=== PATIENT | female | born 1990 | race Caucasian/White ===

== ENCOUNTER 2019-12-26 18:17 | Emergency (ER) | payer SELFPAY ==
[2019-12-26 19:44] VITALS: BP 145/68; PULSE 76; RESP 16; TEMP 37.1; O2SAT 100; BMI 24.4
--- NOTE | 2019-12-26 20:52 | ED.ALLEREA ---
HPI - Allergic Reaction General Chief complaint: Allergic Reaction Stated complaint: ALLERGIC REACTION Time Seen by Provider: 12/26/19 20:52 Source: patient History of Present Illness HPI narrative: 29-year-old female states was exposed to some transmission oil that may have had some latex on it and had a rash on bilateral hands. Since then it has improved and came into emergency department for evaluation. Patient states no shortness of breath no chest pain no rash now came in for evaluation MD complaint: allergic reaction Known history of allergy to: latex Symptoms: rash Related Data Allergies Allergy/AdvReac Type Severity Reaction Status Date / Time Sulfa (Sulfonamide Allergy Unknown ANAPHYLAXIS Unverified 12/06/19 16:00 Antibiotics) Latex, Natural Rubber Allergy Swelling Verified 12/26/19 19:47 Review of Systems Review of Systems: Constitutional : No Weight loss, No Fever, No Chills, No Night Sweats, No Fatigue, No Malaise ENT/Mouth : No Hearing loss, No Ear Pain, No Nasal Congestion, No Sinus Pain, No Hoarseness, No sore throat, No Rhinorrhea, No Swallowing Difficulty Eyes: No Eye Pain, No Swelling, No Redness, No Foreign Body, No Discharge, No Vision Changes Cardiovascular : No Chest Pain, No SOB, No Dyspnea on Exertion, No Orthopnea, No Edema, No Palpitations Respiratory : No Cough, No Sputum, No Wheezing, No Smoke Exposure, No Dyspnea Gastrointestinal : No Nausea, No Vomiting, No Diarrhea, No Constipation, No abdominal Pain, No Hematochezia, No Melena Genitourinary : no irregular bleeding, No Dysuria, No Urinary Frequency, No Hematuria, No Urinary Incontinence, No Urgency, No Flank Pain, No Urinary Flow Changes, No Hesitancy Musculoskeletal : No joint pain, No Myalgias, No Joint Swelling Skin : No Skin Lesions, No rash Neuro : No Weakness, No Numbness, No Paresthesias, No Loss of Consciousness, No Dizziness, No Headache Psych : No Anxiety/Panic, No Depression, No SI/HI/AH/VH, No Social Issues, Heme/Lymph: No Bruising, No Bleeding,No Lymphadenopathy Endocrine : No Polyuria, No Polydipsia, No Temperature Intolerance PMFSH Past Medical History Attestation statement: The following information was validated with the patient. Medical History delivery delivered Cholecystitis Family History Family History (Updated 12/26/19 @ 20:54 by Anton Walker DO) Other Patient denies medical problems Social History Social History Alcohol intake: never Smoking Status: Current every day smoker Smoked in Last 30 Days: Yes Use of substances other than those prescribed or required for medical reasons: No Advance Directives: No Advance Directives Information Provided: Yes Physical Exam Vital Signs and I&O and Narrative: Vital Signs and I&O: Vital Signs Temp 98.7 F 12/26/19 19:44 Pulse 76 12/26/19 19:44 Resp 16 12/26/19 19:44 BP 145/68 H 12/26/19 19:44 Pulse Ox 100 12/26/19 19:44 Intake & Output 12/26/19 12/26/19 12/27/19 06:59 18:59 06:59 Weight 62.596 kg Body Mass Index 24.4 reviewed Appearance: Alert. Oriented X3. No acute distress. Eyes: Pupils equal, round and reactive to light. ENT: Pharynx normal. Neck: Normal inspection. Neck supple. CVS: Normal heart rate and rhythm. Pulses normal. Respiratory: No respiratory distress. Breath sounds normal. Abdomen: Soft and nontender. Skin: Skin warm and dry. Normal skin color. Normal skin turgor. Extremities: No lower extremity edema. No lower extremity edema. no rash neurovascularly intact Neuro: Oriented X 3. No motor deficit. No sensory deficit. Discharge Plan Discharge Clinical Impression: Allergic reaction Patient Disposition: Home, Self-Care Instructions: Allergies (ED) Additional Instructions: Thank you for visiting the emergency department today. If your symptoms worsen or do not resolve completely please return to the emergency department immediately or call 911. if he have any questions please call your primary care physician Referrals: Sarai Chun [Emergency Nurse] - 2 days
[2019-12-26] MEDS: dexAMETHasone 6 MG TABLET PO (21:10)
== END 2019-12-26 21:13 | disposition home or self-care (01) ==
PROVIDERS: Emergency Provider Emergency Medicine
DX: Z04.2 Encounter for examination and observation following work accident (principal); T65.811A Toxic effect of latex, accidental (unintentional), initial encounter; R21 Rash and other nonspecific skin eruption; Y92.9 Unspecified place or not applicable; F17.200 Nicotine dependence, unspecified, uncomplicated
CPT/HCPCS: 99283; 99284; J8540

== ENCOUNTER 2021-03-10 16:28 | Emergency (ER) | payer OTHER, SELFPAY ==
[2021-03-10 16:55] VITALS: BP 148/107; PULSE 87; RESP 16; TEMP 36.9; O2SAT 99; BMI 28.8
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
== END 2021-03-10 17:52 | disposition home or self-care (01) ==
PROVIDERS: Emergency Provider Emergency Medicine; PCP Physician Assistant
DX: K02.9 Dental caries, unspecified (principal); K05.10 Chronic gingivitis, plaque induced
CPT/HCPCS: 99283

== ENCOUNTER 2021-05-19 01:09 | Emergency (ER) | payer OTHER, SELFPAY ==
[2021-05-19 01:11] VITALS: BP 144/90; PULSE 75; RESP 18; TEMP 36.4; O2SAT 96; BMI 24.7
--- NOTE | 2021-05-19 03:42 | ED.DENTAL ---
HPI - Dental/Oral General Chief complaint: Dental/Oral Stated complaint: Dental pain Time Seen by Provider: 05/19/21 03:37 Source: patient Mode of arrival: ambulatory Limitations: no limitations History of Present Illness HPI Narrative: Patient comes to emergency room complaining of severe tooth pain. Patient states that she was supposed to be seen by the dentist couple of months ago, however she was diagnosed with COVID and her procedure was delayed. Patient complaining of worsening pain in the maxillary side on the left side. Patient has an appointment in 3 days with her dentist. Patient denies fever chills Related Data Previous Rx's Medication Instructions Recorded acetaminophen 500 mg tablet 1,000 mg PO QID PRN #14 tab 03/10/21 (Tylenol Extra Strength) amoxicillin 875 mg-potassium 1 tab PO BID 10 Days #20 tab 03/10/21 clavulanate 125 mg tablet (Augmentin) chlorhexidine gluconate 0.12 % 15 ml MUCOUS MEMBRANE BID #473 ml 03/10/21 mouthwash ibuprofen 800 mg tablet 800 mg PO Q8H PRN #14 tab 03/10/21 oxycodone 5 mg tablet 5 mg PO Q6H PRN #14 tab 03/10/21 ketorolac 10 mg tablet 10 mg PO TID PRN 5 Days tab 05/19/21 penicillin V potassium 500 mg 500 mg PO TID 10 Days #30 tab 05/19/21 tablet Allergies Allergy/AdvReac Type Severity Reaction Status Date / Time Sulfa (Sulfonamide Allergy Unknown ANAPHYLAXIS Verified 05/19/21 01:10 Antibiotics) Latex, Natural Rubber Allergy Swelling Verified 05/19/21 01:10 Review of Systems Review of Systems: Constitutional : No Weight loss, No Fever, No Chills, No Night Sweats, No Fatigue, No Malaise ENT/Mouth : No Hearing loss, No Ear Pain, No Nasal Congestion, No Sinus Pain, No Hoarseness, No sore throat, No Rhinorrhea, No Swallowing Difficulty, complaining of dental pain Eyes: No Eye Pain, No Swelling, No Redness, No Foreign Body, No Discharge, No Vision Changes Cardiovascular : No Chest Pain, No SOB, No Dyspnea on Exertion, No Orthopnea, No Edema, No Palpitations Respiratory : No Cough, No Sputum, No Wheezing, No Smoke Exposure, No Dyspnea Gastrointestinal : No Nausea, No Vomiting, No Diarrhea, No Constipation, No abdominal Pain, No Hematochezia, No Melena Genitourinary : no irregular bleeding, No Dysuria, No Urinary Frequency, No Hematuria, No Urinary Incontinence, No Urgency, No Flank Pain, No Urinary Flow Changes, No Hesitancy Musculoskeletal : No joint pain, No Myalgias, No Joint Swelling Skin : No Skin Lesions, No rash Neuro : No Weakness, No Numbness, No Paresthesias, No Loss of Consciousness, No Dizziness, No Headache Psych : No Anxiety/Panic, No Depression, No SI/HI/AH/VH, No Social Issues, Heme/Lymph: No Bruising, No Bleeding,No Lymphadenopathy Endocrine : No Polyuria, No Polydipsia, No Temperature Intolerance PMF Past Medical History Medical History delivery delivered Cholecystitis Family History Family History Other Patient denies medical problems Social History Social History Alcohol intake: never Advance Directives: No Patient : No Physical Exam Vital Signs: Vital Signs: Last Vital Signs Temp 97.5 F 05/19/21 01:11 Pulse 75 05/19/21 01:11 Resp 18 05/19/21 01:11 BP 144/90 H 05/19/21 01:11 Pulse Ox 96 05/19/21 01:11 BMI result Body Mass Index 24.7 Const: Other: Appearance: Alert. Oriented X3. No acute distress. Eyes: Pupils equal, round and reactive to light. ENT: Pharynx normal. Overall poor dentition. multiple decayed teeth, pain to palpation over the left maxillary side. Dental abscess was not visualized Neck: Normal inspection. Neck supple. No lymph nodes noted. No crepitus CVS: Normal heart rate and rhythm. Pulses normal. Normal S1 and S2 Respiratory: No respiratory distress. Breath sounds normal. No Wheezing. No rales Abdomen: Soft and nontender. No rigidity. No distention. good BS x4 Skin: Skin warm and dry. Normal skin color. Normal skin turgor. Extremities: No lower extremity edema. No lower extremity edema. No Lacerations. No Rash Neuro: Oriented X 3. No motor deficit. No sensory deficit. Moving all extermities. No slurred speech. Course Course Course Narrative: Patient was given 1 dose of IM Toradol and p.o. penicillin. Patient instructed to follow-up with her dentist. Discharge Plan Discharge Clinical Impression: Toothache Patient Disposition: Home, Self-Care Instructions: Toothache (ED) Additional Instructions: Please follow-up with your primary care physician tomorrow. If you have any worsening or new symptoms, please return to the emergency room or call 911 Prescriptions: New penicillin V potassium 500 mg tablet 500 mg PO TID 10 Days Qty: 30 0RF ketorolac 10 mg tablet 10 mg PO TID PRN (Reason: pain) 5 Days 0RF Rx Instructions: Do not use ibuprofen, naproxen, Motrin, only use Tylenol if needed No Action amoxicillin-pot clavulanate [Augmentin] 875-125 mg tablet 1 tab PO BID 10 Days Qty: 20 0RF ibuprofen 800 mg tablet 800 mg PO Q8H PRN (Reason: pain) Qty: 14 0RF acetaminophen [Tylenol Extra Strength] 500 mg tablet 1,000 mg PO QID PRN (Reason: fever or pain) Qty: 14 0RF chlorhexidine gluconate 0.12 % mouthwash 15 ml mucous membrane BID Qty: 473 0RF oxycodone 5 mg tablet 5 mg PO Q6H PRN (Reason: pain) Qty: 14 0RF
[2021-05-19] MEDS: Penicillin V Potassium 250 MG TABLET 500 MG PO (03:49)
[2021-05-19] MEDS: Ketorolac Tromethamine 60 MG/2 ML VIAL IM (03:50)
[2021-05-19 03:54] VITALS: BP 128/77; PULSE 78; RESP 16; O2SAT 98
== END 2021-05-19 03:56 | disposition home or self-care (01) ==
PROVIDERS: Emergency Provider Emergency Medicine
DX: K08.89 Other specified disorders of teeth and supporting structures (principal); Z79.899 Other long term (current) drug therapy
CPT/HCPCS: 96372; 99284; J1885

== ENCOUNTER → 2021-08-14 10:33 | Outpatient (BNVA) | payer SELFPAY | DX: Z01.84 Encounter for antibody response examination (principal) ==

== ENCOUNTER 2023-09-24 07:39 | Emergency (ER) | payer OTHER, SELFPAY ==
--- NOTE | ~2023-09-24 | CT_ITS ---
EXAMINATION: CT ABDOMEN AND PELVIS WITHOUT CONTRAST CLINICAL INFORMATION: Right flank pain, fever COMPARISON: CT abdomen and pelvis 05/21/2019 TECHNIQUE: Multidetector volumetric imaging was performed from the superior aspect of the liver through the pubic symphysis. Sagittal and coronal reformatted images were obtained on the technologist's workstation. This CT examination was performed using dose optimization techniques as appropriate, variously including the following: *Automated exposure control *Adjustment of mA and/or kV according to patient size (this includes techniques or standardized protocols for targeted exams where dose is matched to indication/reason for exam; i.e. extremities or head) *Use of iterative reconstruction technique DLP: 461 mGy-cm FINDINGS: LUNG BASES: A 6 mm solid right lower lobe pulmonary nodules unchanged from 2019, and therefore likely benign. ABDOMINAL AND PELVIC WALL: Unremarkable. LIVER AND BILIARY TREE: Unremarkable. GALLBLADDER: Status post cholecystectomy. PANCREAS: Unremarkable. SPLEEN: Unremarkable. ADRENAL GLANDS: Unremarkable. KIDNEYS AND URETERS: No hydronephrosis or nephrolithiasis. Lack of intravenous contrast limits assessment for pyelonephritis. No appreciable perinephric fat stranding. GASTROINTESTINAL TRACT: Colonic diverticulosis without evidence of diverticulitis. Normal appendix. VASCULAR: Unremarkable. LYMPH NODES/PERITONEUM: No lymphadenopathy. FREE FLUID: None. BLADDER: Unremarkable. PELVIC VISCERA: Unremarkable. OSSEOUS STRUCTURES: Unremarkable. CT/CT abdomen pelvis wo IV con IMPRESSION: No hydronephrosis or nephrolithiasis. Lack of intravenous contrast limits assessment for pyelonephritis, if any clinical concern a postcontrast CT abdomen and pelvis could be obtained. No appreciable perinephric fat stranding.
[2023-09-24 07:41] VITALS: BP 145/97; PULSE 82; RESP 16; TEMP 36.6; O2SAT 95; BMI 28.5
--- NOTE | 2023-09-24 07:58 | ED_ITS ---
HPI - General Adult General Chief complaint: Abdominal Pain Stated complaint: vomiting fever headache Time Seen by Provider: 09/24/23 07:47 History of Present Illness ED Provider: Michelle COLBY HPI narrative: 33 yo female presenting with right sided flank pain, nausea, vomiting, and diarrhea x 1 week. She also reports amenorrhea since July of this year. She initially had RLQ pain and was seen at [facility] where they ruled out appendicitis and and she was prescribed Augmentin. Since starting antibiotics, she has had more diarrhea and right sided flank pain. She reports intermittent fevers, chills, and dizziness, no chest pain, sob. Related Data Previous Rx's ?Medication ?Instructions ?Recorded acetaminophen 500 mg tablet 1,000 mg (2 x 500 mg) PO QID PRN 03/10/21 (Tylenol Extra Strength) fever or pain #14 tabs amoxicillin 875 mg-potassium 1 tab PO BID 10 days #20 tabs 03/10/21 clavulanate 125 mg tablet (Augmentin) chlorhexidine gluconate 0.12 % 15 ml mucous membrane BID #473 mL 03/10/21 mouthwash ibuprofen 800 mg tablet 800 mg PO Q8H PRN pain #14 tabs 03/10/21 oxycodone 5 mg tablet 5 mg PO Q6H PRN pain #14 tabs 03/10/21 ketorolac 10 mg tablet 10 mg PO TID PRN pain 5 days 05/19/21 penicillin V potassium 500 mg 500 mg PO TID 10 days #30 tabs 05/19/21 tablet acetaminophen 325 mg capsule 325 mg PO Q4H PRN pain #30 caps 09/24/23 (Tylenol) ketorolac 10 mg tablet 10 mg PO TID PRN pain 5 days #15 09/24/23 tabs lidocaine 5 % topical patch 1 patch topical DAILY PRN pain #15 09/24/23 ea Allergies Allergy/AdvReac Type Severity Reaction Status Date / Time Sulfa (Sulfonamide Allergy Unknown ANAPHYLAXIS Verified 09/24/23 07:43 Antibiotics) Latex, Natural Rubber Allergy Swelling Verified 09/24/23 07:43 PMFSH Past Medical History Medical History delivery delivered Cholecystitis Family History Family History Other Patient denies medical problems Social History Social History (System 01/04/23 @ 11:48 by Adriana Mota) Alcohol intake: never Patient Tobacco Use Status: Never used Tobacco Smoked in Last 30 Days: No Use of substances other than those prescribed or required for medical reasons: No Advance Directives: No Advance Directives Information Provided: No Do you have a plan to hurt others: No Plan Patient : No Physical Exam ED Vital Signs: Vital Signs - 24 hr 09/24/23 07:41 09/24/23 10:16 09/24/23 11:43 Temperature 97.9 F 97.9 F 97.9 F Pulse Rate 82 75 75 Respiratory Rate 16 16 16 Blood Pressure 145/97 H 120/79 120/79 Pulse Oximetry 95 98 98 Oxygen Delivery Method Room Air Room Air Room Air BMI result Body Mass Index 28.5 vss Appearance: Alert.? Oriented X3.? No acute distress.? Head: Normocephalic, atraumatic, no step-offs or deformities Eyes: Pupils equal, round and reactive to light.? ENT: Pharynx normal.??External ears normal, TMs normal bilaterally and EAC's normal. No pain with manipulation of external ears bilaterally. No mastoid tenderness. Neck: Normal inspection.? Neck supple.? CVS: Normal heart rate and rhythm.? Pulses normal.? Respiratory: No respiratory distress.? Breath sounds normal.? Abdomen: Soft and nontender.? Skin: Skin warm and dry.? Normal skin color.? Normal skin turgor. Back: No midline tenderness, no C-spine tenderness, full range of motion, + CVA tenderness to right side Neuro: Oriented X 3.? No motor deficit.? No sensory deficit. CN 2-12 intact Course Reevaluation(s) Reevaluation #1: CBC unremarkable. Chemistry no acute findings requiring intervention. Negative beta hCG. Normal lipase. UA without infection. Flu, COVID, RSV negative. CT abdomen pelvis with no acute findings no hydronephrosis or nephrolithiasis lack of IV contrast limits assessment for pyelonephritis, however, patient afebrile, no tachycardia no white count, urine without infection. Patient's pain improved with Toradol, Lidoderm. Plan at this time is discharged home with PCP follow-up. Educated patient on diagnosis and treatment plan, answered all question, patient verbalizes understanding. At this time patient will be discharged home, advised to return with new or worsening symptoms. Educated on worrisome signs and symptoms and when to return. At this time I feel comfortable discharge home. Time: 11:14 Reevaluation #2: To note, I do not suspect ovarian torsion, ectopic . Patient also mentions she had a full pelvic transvaginal and external ultrasound done at [facility] as well as a CT scan with contrast she thinks. She tells me all those scans and imaging were normal. Time: 11:14 Medications Administered Discontinued Medications Generic Name Dose Route Start Last Admin Trade Name Freq PRN Reason Stop Dose Admin Acetaminophen 975 mg 09/24/23 10:10 09/24/23 10:18 Acetaminophen 325 Mg Tablet PO 09/24/23 10:11 975 mg ONCE ONE Administration Sodium Chloride 1,000 mls @ 999 mls/hr 09/24/23 09:45 09/24/23 11:42 Ns IV 09/24/23 10:45 Infused .Q1H1M MISTY Infusion Ketorolac Tromethamine 30 mg 09/24/23 09:31 09/24/23 10:18 Ketorolac Tromethamine 15 Mg/Ml Vial IVPUSH 09/24/23 09:32 30 mg ONCE ONE Administration Lidocaine 1 patch 09/24/23 10:10 09/24/23 10:18 Lidocaine 4 % Patch Adh..Patch TRANSDERMA 09/24/23 10:11 1 patch ONCE ONE Administration Protocol Ondansetron HCl 4 mg 09/24/23 10:22 09/24/23 10:23 Ondansetron Hcl 4 Mg/2 Ml Vial IVPUSH 09/24/23 10:23 4 mg ONCE ONE Administration Medical Decision Making Medical Decision Making MDM Narrative: 33 yo female presenting with right sided flank pain, nausea, vomiting, and diarrhea x 1 week. PE + CVA tenderness to right side. Hx and PE concerning for kidney stone versus gastroenteritis. Unlikely pylo, obstructing uropathy, , appendicitis, cholecystitis, cholangitis. No signs of cauda equina, epidural abscess, cord compression. Unlikely ectopic , ovarian torsion Plan - labs, imaging, urine. Differential Diagnosis Differential Diagnoses: The differential diagnosis associated with the presentation includes Hx and PE concerning for kidney stone versus gastroenteritis. Unlikely pylo, obstructing uropathy, , appendicitis, cholecystitis, cholangitis. No signs of cauda equina, epidural abscess, cord compression. Unlikely ectopic , ovarian torsion Lab Data 09/24/23 08:01 09/24/23 08:01 Labs: Lab Results 09/24/23 Range/Units 08:01 WBC 6.6 (4.8-10.8) X10*3/uL RBC 4.55 (4.20-5.50) X10*6/uL Hgb 13.5 (12.0-16.0) g/dl Hct 39.2 (37.0-47.0) % MCV 86.2 (80.0-98.0) fL MCH 29.7 (27.0-33.0) pg MCHC 34.4 (31.0-35.0) g/dl RDW 13.2 (11.0-16.0) % Plt Count 381 (160-400) X10*3/uL MPV 8.6 L (9.4-12.3) fL Immature Gran % (Auto) 0.3 (0.0-0.4) % Neut % (Auto) 62.6 (45-73) % Lymph % (Auto) 27.6 (20-40) % [place] % (Auto) 7.5 (2-11) % Eos % (Auto) 1.5 (0-4) % Baso % (Auto) 0.5 (0-2) % Lymph # (Auto) 1.8 (1.2-4.9) X10*3/uL [place] # (Auto) 0.5 (0.1-1.2) X10*3/uL Eos # (Auto) 0.1 (0.0-0.4) X10*3/uL Baso # (Auto) 0.0 (0.0-0.2) X10*3/uL Abs Immat Gran (auto) 0.02 (0.00-0.03) X10*3/uL Absolute Neuts (auto) 4.2 (2.0-8.3) x10*3/uL Absolute Nucleated RBC 0.000 (0.0-0.012) X10*3/uL Nucleated RBC % (auto) 0.0 (0.0-0.2) /100WBC Sodium 140 (135-145) mmol/L Potassium 4.2 (3.3-5.1) mmol/L Chloride 108 (96-108) mmol/L Carbon Dioxide 25 (22-29) mmol/L Anion Gap 11 L (12-20) BUN 15 (9-16) mg/dL Creatinine 0.83 (0.5-1.4) mg/dL Estim Creat Clear Calc 88.8 Estimated GFR > 60 Random Glucose 102 (60-115) mg/dL Calcium 9.5 (8.4-10.2) mg/dL Total Bilirubin 0.2 (0.0-1.0) mg/dL AST 18 (5-31) U/L ALT 32 H (0-31) U/L Alkaline Phosphatase 98 (39-117) U/L Total Protein 7.6 (6.5-8.0) g/dL Albumin 4.5 (3.5-5.0) g/dL Lipase 44 (8-78) U/L Beta HCG, Quant < 2 mIU/mL Urine Color Yellow Urine Appearance Clear Urine pH 7.0 (5.0-9.0) Ur Specific [place] 1.020 (1.005-1.025) Urine Protein Negative (Neg-Trace) mg/dL Urine Glucose (UA) Negative (Negative) mg/dL Urine Ketones Negative (Negative) mg/dL Urine Blood Negative (Negative) Urine Nitrite Negative (Negative) Ur Leukocyte Esterase Negative (Negative) Urine Test NEGATIVE (NEGATIVE) Influenza Type A (PCR) NEGATIVE (Negative) Influenza Type B (PCR) NEGATIVE (Negative) RSV RNA Qual (PCR) NEGATIVE (Negative) SARS-CoV-2 RNA (RT-PCR) NEGATIVE (Negative) Discharge Plan Discharge Clinical Impression: Acute right flank pain Patient Disposition: Home, Self-Care Instructions: Flank Pain (ED) Additional Instructions: Take your medications as prescribed. If you were prescribed antibiotics today, it is important that you take your medication to their entirety, do not skip any doses, do not finish them early. Follow-up with your primary care provider this week. Return to the emergency department with new or worsening symptoms. Such as fevers, chills, chest pain, shortness of breath, nausea, vomiting, dizziness, headache, vision changes, lethargy In case of emergency call 911 Toradol has been sent to your pharmacy, you tolerated this well in the department. Please take this as prescribed do not take this with ibuprofen, or other NSAIDs, do not mix this with alcohol. Side effects of this medication including increased risk for bleeding and possible kidney injury. Return with any new or worsening symptoms such as back pain, fevers, numbness, tingling, nausea, vomiting, abdominal pain. CT/CT abdomen pelvis wo IV con IMPRESSION: No hydronephrosis or nephrolithiasis. Lack of intravenous contrast limits assessment for pyelonephritis, if any clinical concern a postcontrast CT abdomen and pelvis could be obtained. No appreciable perinephric fat stranding. Prescriptions: New ketorolac 10 mg tablet 10 mg PO TID PRN (Reason: pain) 5 Days Qty: 15 0RF lidocaine 5 % adhesive patch,medicated 1 patch topical DAILY PRN (Reason: pain) Qty: 15 0RF Rx Instructions: leave on most painful area for up to 12 hrs acetaminophen [Tylenol] 325 mg capsule 325 mg PO Q4H PRN (Reason: pain) Qty: 30 0RF No Action amoxicillin-pot clavulanate [Augmentin] 875-125 mg tablet 1 tab PO BID 10 Days Qty: 20 0RF ibuprofen 800 mg tablet 800 mg PO Q8H PRN (Reason: pain) Qty: 14 0RF acetaminophen [Tylenol Extra Strength] 500 mg tablet 1,000 mg PO QID PRN (Reason: fever or pain) Qty: 14 0RF chlorhexidine gluconate 0.12 % mouthwash 15 ml mucous membrane BID Qty: 473 0RF oxycodone 5 mg tablet 5 mg PO Q6H PRN (Reason: pain) Qty: 14 0RF penicillin V potassium 500 mg tablet 500 mg PO TID 10 Days Qty: 30 0RF ketorolac 10 mg tablet 10 mg PO TID PRN (Reason: pain) 5 Days 0RF Rx Instructions: Do not use ibuprofen, naproxen, Motrin, only use Tylenol if needed Referrals: Rachael Salinas PA-C [Primary Care Provider] - 2 days Stand Alone Forms: Work/School Release Interventions: ED Discharge Assessment Last Done: 09/24/23 11:43 Discharge Date/Time: 09/24/23 11:45 Print Language: Georgian
[2023-09-24 08:06] LABS: MANUAL DIFF FLAG NO
[2023-09-24 08:08] LABS: Basophils Percent Auto 0.5 % (0-2); Eosinophils Absolute Auto 0.1 X10*3/uL (0.0-0.4); Eosinophils Percent Auto 1.5 % (0-4); Hematocrit 39.2 % (37.0-47.0); Hemoglobin 13.5 g/dl (12.0-16.0); Imm Gran Abs Auto 0.02 X10*3/uL (0.00-0.03); Imm Gran Pct Auto 0.3 % (0.0-0.4); Lymphocytes Absolute Auto 1.8 X10*3/uL (1.2-4.9); Lymphocytes Percent Auto 27.6 % (20-40); Mean Corpuscular HGB Conc 34.4 g/dl (31.0-35.0); Mean Corpuscular Hemoglobin 29.7 pg (27.0-33.0); Mean Corpuscular Volume 86.2 fL (80.0-98.0); Mean Platelet Volume 8.6 fL (9.4-12.3); Monocytes Absolute Auto 0.5 X10*3/uL (0.1-1.2); Monocytes Percent Auto 7.5 % (2-11); Neutrophils Absolute Auto 4.2 x10*3/uL (2.0-8.3); Neutrophils Percent Auto 62.6 % (45-73); Platelet Count 381 X10*3/uL (160-400); Red Blood Count 4.55 X10*6/uL (4.20-5.50); Red Cell Distribution Width 13.2 % (11.0-16.0); White Blood Count 6.6 X10*3/uL (4.8-10.8)
--- NOTE | 2023-09-24 08:09 | PC.NURSE ---
a&ox4. vss and up to date. pt presents to the ED w/ RLQ pain radiating to right flank and upper side of right back x 1 week. pt now presents w/ worsening pain/n/v/d/dizziness. pt states she was recently seen at [facility] where they ruled out appendicitis as well as being as pt has not had a period since july. abd tender w/ palpation. 20gIV placed in the left AC - labs obtained/sent to lab. pt ambulates to the restroom independently w/ a steady gait - UA obtained/sent to lab.no sob/wob noted. respirations even/unlabored. plan of care ongoing. call clark placed within reach.
[2023-09-24 08:10] LABS: Appearance Urine Clear; Color Urine Yellow; Glucose Urine UA Negative (Negative); Leukocyte Esterase Urine Negative (Negative); Nitrite Urine Negative (Negative); Urine Blood Negative (Negative); Urine Ketones Negative (Negative); Urine Protein Negative (Neg-Trace)
[2023-09-24 08:11] LABS: UPreg QC Valid YES; Urine Pregnancy NEGATIVE (NEGATIVE)
[2023-09-24 08:22] LABS: Alanine Aminotransferase 32 U/L (0-31); Albumin Level 4.5 g/dL (3.5-5.0); Alkaline Phosphatase 98 U/L (39-117); Anion Gap 11 (12-20); Aspartate Amino Transferase 18 U/L (5-31); Bilirubin Total 0.2 mg/dL (0.0-1.0); Blood Urea Nitrogen 15 mg/dL (9-16); Calcium 9.5 mg/dL (8.4-10.2); Carbon Dioxide 25 mmol/L (22-29); Chloride 108 mmol/L (96-108); Creatinine Clr Calc Pharmacy 88.8; Estimated Glomerular Filt Rate > 60; Glucose Random 102 mg/dL (60-115); Lipase 44 U/L (8-78); Potassium 4.2 mmol/L (3.3-5.1); Sodium 140 mmol/L (135-145); Total Protein 7.6 g/dL (6.5-8.0)
[2023-09-24 08:31] LABS: HCG Quantitative < 2 mIU/mL
--- NOTE | 2023-09-24 08:35 | PC.NURSE ---
pt to CT at this time.
[2023-09-24 08:59] LABS: Influenza A PCR NEGATIVE (Negative); Influenza B PCR NEGATIVE (Negative); Resp Syncy Virus RNA Qual PCR NEGATIVE (Negative); SARS COV2 PCR INHOUSE NEGATIVE (Negative)
[2023-09-24 10:16] VITALS: BP 120/79; PULSE 75; RESP 16; TEMP 36.6; O2SAT 98
[2023-09-24] MEDS: Acetaminophen 325 MG TABLET 975 MG PO (10:18)
[2023-09-24] MEDS: Lidocaine 4 % Patch ADH..PATCH 1 PATCH TRANSDERMA (10:18)
[2023-09-24] MEDS: 0.9 % Sodium Chloride 1,000 ML 999 ML IV (10:18)
[2023-09-24] MEDS: Ketorolac Tromethamine 15 MG/ML VIAL 30 MG IVPUSH (10:18)
[2023-09-24] MEDS: ondansetron HCL 4 MG/2 ML VIAL IVPUSH (10:23)
--- NOTE | 2023-09-24 10:24 | PC.NURSE ---
pt c/o increase in pain. pt medicated per provider order. IVF infusing. effectiveness pending. plan of care ongoing. call clark placed within reach.
[2023-09-24 11:43] VITALS: BP 120/79; PULSE 75; RESP 16; TEMP 36.6; O2SAT 98
== END 2023-09-24 11:45 | disposition home or self-care (01) ==
PROVIDERS: Physician Assistant; Emergency Provider Emergency Medicine; PCP Physician Assistant
DX: R10.9 Unspecified abdominal pain (principal); Z03.818 Encounter for observation for suspected exposure to other biological agents ruled out; R50.9 Fever, unspecified; Z79.899 Other long term (current) drug therapy
CPT/HCPCS: 0241U; 36415; 74176; 80053; 81003; 81025; 83690; 84702; 85025; 96361; 96374; 96375; 99284; 99285; J1885; J2405

== ENCOUNTER 2024-04-17 20:26 | Emergency (ER) | payer OTHER, MEDICAID, SELFPAY ==
--- NOTE | ~2024-04-17 | XR_ITS ---
CLINICAL HISTORY: pain 3 view right shoulder Comparison: None Findings: No fractures or dislocations. No arthritic change. No erosions. No radiopaque foreign body. IMPRESSION: 1. No acute findings This document has been electronically signed by: Amber Augustine MD on 04/17/2024 21:01:29
--- NOTE | ~2024-04-17 | CT_ITS ---
CLINICAL HISTORY: pain CT cervical spine without contrast Comparison: None Findings: Normal vertebral body alignment. No significant degenerative change. No acute fractures or dislocations. Visualized intracranial contents are unremarkable. No cervical fluid collections or masses. Lung apices are clear. IMPRESSION: No acute findings. This document has been electronically signed by: Saundra Bai MD on 04/17/2024 21:21:49
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
--- NOTE | ~2024-04-17 | XR_ITS ---
CLINICAL HISTORY: pain 3 view right elbow Comparison: None Findings: No acute fractures. Normal alignment. No arthritic change. No joint effusion. No radiopaque foreign body. IMPRESSION: 1. No acute findings This document has been electronically signed by: Amber Augustine MD on 04/17/2024 21:02:06
[2024-04-17 20:27] VITALS: BP 167/118; PULSE 91; RESP 15; TEMP 37; O2SAT 100; BMI 28.6
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
--- OUTSIDE RECORDS SUMMARY | 2024-04-17 21:18 | XMS_ITS | Clinical Summary ---
Author Organization [facility] Address [address] [place] [address] Care Team Providers Care Software Controls Engineer Name Role Phone Unavailable Primary Care Provider Unavailabl e Source Comments PLEASE NOTE, if this patient is a minor, it may be UNLAWFUL to discuss sensitive information that is contained in these records (such as FAMILY PLANNING, MENTAL HEALTH or SUBSTANCE ABUSE) with the minor patient's parent or other person without the patient's specific authorization.[facility] Encounters Date Type Department Care Team Description 03/16/2024 Travel from Last 3 Months Social History Tobacco Use Types Packs/Day Years Used Date Smoking Tobacco: Never Assessed Social Connections Answer Date Recorded Connectedness 0 03/16/2024 Financial Resource Strain Answer Date R ecorded Financial Resource Strain 0 2023 Stress Answer Date Recorded Stress 0 03/16/2024 Physical Activity Answer Date Recorded Physical Activity 0 03/16/2024 Food Insecurity Answer Date Recorded Food 0 03/16/2024 Transportation Needs Answer Date Record ed Transportation 0 03/16/2024 Housing Stability Answer Date Recorded Housing 0 03/16/2024 Safety and Environment Answer Date Vinnie rded Safety 0 03/16/2024 Utilities Answer Date Recorded Utilities 0 03/16/2024 Employment Answer Date Recorded Stress 0 03/16/2024 Comments Unknown Sex and Gender Information Value Date Recorded Sex Assigned at Not on file Legal Sex Female 6:36 AM PST Gender Identity Not on file Sexual Orientation Not on file Plan of Treatment Health Maintenance Due Date Last Done Comments HPV Screening 1990 Hepatitis C Screening 1990 Pap + HPV 1990 Tobacco Screening 1990 HIV Screening 2005 Relationship Safety Screening/Counseling 2005 Hypertension Screening (#1) 2008 Imm-DTaP/Tdap/Td (1 - Tdap) 2009 Imm-Hepatitis B (1 of 3 - 19+ 3-dose series) 0 Cervical Cancer Screening 06/12/2011 Pap Smear 06/12/2011 Dmj-LENOC-13 ( season) 2023 Imm-Influenza (#1) 2023 Alcohol and Drug Screen 03/21/2024 Depression Annual Screen 03/21/2024 Cervical Ablation/Cold-Knife Conization Discontinued Cervical Cryotherapy Discontinued Colposcopy Discontinued Endometrial Biopsy Discontinued Excision/Leep Discontinued HPV Genotyping Discontinued Vaginal Pap Discontinued Vulvoscopy Discontinued Procedures Procedure Name Priority Date/Time Associated Diagnosis Comments COVID-19, ID NOW, [facility]MAN (POCT) Routine 03/16/2024 9:44 AM EST Encounter for laboratory testing for COVID-19 virus from Last 3 Months Results * COVID-19, ID NOW, [facility] (POCT) (03/16/2024 9:44 AM EST) COVID-19 NEGATIVE NEGATIVE [facility] INTERNAL CONTROL PASS PASS [facility] Swab Nasal structure / Unknown 03/16/2024 9:44 AM EST us Soy Gold MD LAB - NO BLOOD DRAW Final Re sult [facility] from Last 3 Months Insurance HNE ([facility]) Member Subscriber Plan / Payer (Ef fective 2024-Present) Name:Meg Rizzo Relation to Subscriber:Self Name:Meg Rizzo Payer ID:[id number] Group ID:Not on file Type:Indemnity Address: [address] [place] [address]
--- OUTSIDE RECORDS SUMMARY | 2024-04-17 21:18 | XMS_ITS | Continuity of Care Document ---
Author Name [facility] Organization [facility] Care Team Providers Care Intervention Manager Name Role Phone [facility] Unavailable Unavailable Problems Combined list of problems from Department of Defense and Veterans Affairs facilities. It does not include entries that were removed or entered in error. Problem Status Onset Date Problem Type Date of Resolution Comments Source Encounter for other administrative examinations Active Condition DoD Allergies, Adverse Reactions, Alerts Combined list of allergies from Department of Defense and Veterans Affairs facilities. It does not include entries that were removed or entered in error. Substance Category Reaction Severity Reaction type Status Date Reported Comments Source No Known Allergies Drug allergy (disorder) active 01/19/2020 [facility] Immunizations Combined list of available immunizations from the Department of Defense and Veterans Affairs facilities. Immunization Series Date Given Administered By Site Reaction Lot Number CVX Code Drug Certified Teacher Assistant Status Comments Source hepatitis A adult vaccine 2019 [id number] GlaxoSmithKli ne complet ed hepatitis A adult vaccine 01/18/20 Given Ambulat ory Pharmac y tetanus, diphtheria, acellular pertu is 2019 [id number] GlaxoSmithKli ne complet ed tetanus, diphtheri a, acellular pertussis 01/18/20 Given Ambulat ory Pharmac y poliovirus vaccine, inactivated 2019 [id number] sanofi pasteur complet ed polioviru s vaccine, inactivat ed 01/18/20 Given Ambulat ory Pharmac y adenovirus vaccine, live 2019 [id number] 143 Teva Pharmaceutica ls complet ed adenoviru s vaccine, live 01/18/20 Given Ambulat ory Pharmac y meningococcal A,C,Y,W-135 (MCV4P) 2019 [id number] sanofi pasteur complet ed meningoco ccal A,C,Y,W-1 35 (MCV4P) 01/18/20 Given Ambulat ory Pharmac y Vital Signs Combined list of inpatient and outpatient Vital Signs from Department of Defense and Veterans Affairs, ranging from 12 months to all on record, depending upon the facility. Vital Sign Value Date Comments Source No data available for this section Ambulatory Pharmacy Encounters Combined list of: 1) Encounters from Department of Veterans Affairs facilities going back up to thelast 18 months. 2) Encounters from the Department of Defense facilities going back up to 280 months. Location Location Details Encounter Type Encounter Number Reason For Visit Attending Provider ADM Date DC Date Status Disposition Source [facility] Immediate Care Clinic) OUTPATIENT [id number] 30YR F SIT C/O CHEST PAIN(NO N EMERGEN T)ANXIE TY ANI ESTRELLA 01/17 Released with Work/Duty Limitations [facility] Immedia te Care Clinic) Brian horn [facility] AD DIRECT TO [facility] [id number] REGIONAL, REFERRAL 01/20 RETURNED TO DUTY Brian flores [address] [facility] OUTPATIENT [id number] RIGHT KNEE PAIN SHARRI VINSON Addy 01/20 Released with Work/Duty Limitations [facility] Ambulat ory) [facility]) TELE CONSULT [id number] Notes Entered by: NITA ZARCO 21 Jan [id number] ------- ------- ------- ------- -- Trainee was transpo rted off post for inpatie nt medical care at [place]> KEDAR LEVINE 01/21 [facility] Medical [facility]) [facility] [place] OUTPATIENT [id number] FOLLOW UP R LEG SHARRI VINSON O 01/30 Released w/o Limitations [facility] Ambulat ory) [facility]) OUTPATIENT [id number] Right knee--( ref: Mrs. Vinson) YASMINE BOOKER 01/31 Released with Work/Duty Limitations [facility] Physica l Therapy ) [facility] Primary [facility]) OUTPATIENT [id number] Notes Entered by: MIA JORDAN 25 Mar 2020 0925 ------- ------- ------- ------- -- MANGO NAPIER KRISTEN BOONE SENAIT 03/25 Released w/o Limitations [facility](I EP Primary Care) Procedures Combined list of: 1) Procedures from Department of Veterans Affairs facilities going back up to thelast 18 months, not all VA non-surgical procedures are included; 2) All procedures from the Department of Defense facilities. Procedure Procedure Type Code Date Perfomer Comments Sourc e No data available for this section Ambulatory Pharmacy ADENOVIRUS VACCINE, TYPE 7, LIVE, FOR ORAL USE 2020 DoD CASE MANAGEMENT, EACH 15 MINUTES 2019 DoD CASE MANAGEMENT, EACH 15 MINUTES 2019 DoD CASE MANAGEMENT, EACH 15 MINUTES 2019 DoD BRIEF EMOTIONAL/BEHAVI ORAL ASSESSMENT (EG, DEPRESSION INVENTORY, ATTENTION-DEFICI T/HYPERACTIVITY DISORDER [ADHD] SCALE), WITH SCORING AND DOCUMENTATION, PER STANDARDIZED INSTRUMENT 2019 [facility] LOWER EXTREMITY ORTHOSES, NOT OTHERWISE SPECIFIED 2019 DoD CASE MANAGEMENT, EACH 15 MINUTES 2019 DoD BRIEF EMOTIONAL/BEHAVI ORAL ASSESSMENT (EG, DEPRESSION INVENTORY, ATTENTION-DEFICI T/HYPERACTIVITY DISORDER [ADHD] SCALE), WITH SCORING AND DOCUMENTATION, PER STANDARDIZED INSTRUMENT 2019 DoD CASE MANAGEMENT, EACH 15 MINUTES 2019 DoD CASE MANAGEMENT, EACH 15 MINUTES 2019 DoD CASE MANAGEMENT, EACH 15 MINUTES 2019 DoD CASE MANAGEMENT, EACH 15 MINUTES 2019 DoD CASE MANAGEMENT, EACH 15 MINUTES 2019 DoD PSYCHIATRIC DIAGNOSTIC EVALUATION 2019 DoD BRIEF EMOTIONAL/BEHAVI ORAL ASSESSMENT (EG, DEPRESSION INVENTORY, ATTENTION-DEFICI T/HYPERACTIVITY DISORDER [ADHD] SCALE), WITH SCORING AND DOCUMENTATION, PER STANDARDIZED INSTRUMENT 2019 DoD KNEE ORTHOSIS, IMMOBILIZER, CANVAS LONGITUDINAL, PREFABRICATED, [id number] 2019 DoD EAR MOLD/INSERT, NOT DISPOSABLE, ANY TYPE 2019 DoD Modalities Cryotherapy Cold Packs Modalities Cryotherapy Cold Packs [id number] ANI ESTRELLA [facility] Knee orthosis, modification of supracondylar prosthetic socket, custom fabricated (SK) ANI ESTRELLA [facility] Psychiatric Diagnostic Evaluation Comprehensive Examination Psychiatric Diagnostic Evaluation Comprehensive Examination [id number] PAOLA FLOYD Limits of confidentiality reviewed with pt. Patient verbally acknowledged understanding. Provider conducted intake and psychosocial assessment. Provider reviewed [facility] data. Following recommendations were made: 1) Inpatient hospitalization; and 2) The [place] meets medical procurement standards and is cleared for any administrative actions. Face to Face: 45 minutes Safety check after discharge from hospital DoD Coordinated care fee, risk adjusted maintenance DORSEY, KATHY D DoD Case Management, each 15 minutes DORSEY, KATHY D 330 minutes; F2F: #2 Targeted assessment, #5 Initial care plan, #8 Interdisciplinary group meeting/update command x 2, #10 Coordination of a complex service, #16 Patient activation simple DoD Coordinated care fee, risk adjusted maintenance, Level 3 DORSEY, KATHY D DoD Case Management, each 15 minutes DORSEY, KATHY D 75 minutes; NF2F: #4 inpatient follow up, #8 Interdisciplinary group meeting/update [facility] DoD Case Management, each 15 minutes DORSEY, KATHY D 15 minutes; NF2F; #8 Interdisciplinary group meeting DoD Case Management, each 15 minutes DORSEY, KATHY D 75 minutes; NF2F: #4 Inpatient follow up, #8 Interdisciplinary group meeting/update [facility] Coordinated care fee, risk adjusted maintenance, Level 4 DORSEY, KATHY D DoD Case Management, each 15 minutes DORSEY, KATHY D 30 minutes; NF2F; #11 follow up single service DoD Psychotherapy Individual Approximately 60 Minutes Psychotherapy Individual Approximately 60 Minutes [id number] FABIO DAVIS DoD Physical Therapy Service Evaluation Low Complexity Physical Therapy Service Evaluation Low Complexity [id number] JOSHUA BOOKERIAN Gwendolyn DoD Physical Therapy Education Orthotics Training Physical Therapy Education Orthotics Training 13175 YASMINE BOOKER DoD Lower extremity orthoses, not otherwise specified STOLTENAGUSTIN Cline YASMINE Gwendolyn DoD Psychotherapy Individual Approximately 30 Minutes Psychotherapy Individual Approximately 30 Minutes [id number] PATRICK DIAMOND seen for 30 min [facility] Psychometric Emotional / Behavioral A e ment Psychometric Emotional / Behavioral Assessment [id number] PATRICK DIAMOND CSSRS was completed. [place] denied any current safety concerns DoD Case Management, each 15 minutes KEDAR LEVINE 11, 16, NF2F [facility] Coordinated care fee, maintenance rate DORSEY, KATHY D DoD Case Management, each 15 minutes DORSEY, KATHY D 30 minutes; NF2F; #11 Follow up single service DoD Immunization Administration By Injection, One Vaccine Immunization Administration By Injection, One Vaccine 78073 [facility] Immunization Administration By Injection, Each Additional Vaccine Immunization Administration By Injection, Each Additional Vaccine 12691 [facility] Hepatitis A Vaccine Adult Dosage (Intramuscular Use) Hepatitis A Vaccine Adult Dosage (Intramuscular Use) 17224 [facility] Vaccines Viral Polio, Inactivated Vaccines Viral Polio, Inactivated 13630 [facility] Meningococcal Conjugate Vaccine Quadrivalent Serogroups A, C, Y, W-135 Meningococcal Conjugate Vaccine Quadrivalent Serogroups A, C, Y, W-135 62748 [facility] Tdap Vaccine Tdap Vaccine 77266 [facility] Immunization Admin Intranasal / Oral Each Additional Vaccine Immunization Admin Intranasal / Oral Each Additional Vaccine 15483 [facility] Vaccines Adenovirus Type 4 Live, For Oral Use Vaccines Adenovirus Type 4 Live, For Oral Use 38255 [facility] Vaccines Adenovirus Type 7 Live, For Oral Use Vaccines Adenovirus Type 7 Live, For Oral Use 30092 [facility] Social History Combined list of available smoking, tobacco, and other social history from Department of [facility] and [facility] facilities. Social History Type Response Date Comment Sourc e This section is an empty social history section. [facility] Assessment and Plan Combined list of future care activities from Department of [facility] and [facility] facilities (e.g., assessment and plan notes, appointments, orders, and referrals). Additional future care activities may be listed in the Plan of Care section. Result Assessment and Plan Date Source Assessment and Plan No data available for this section 04/18/2024 Ambulatory Pharmacy Functional Status Combined list of recent functional and cognitive assessments recorded at Department of Defense and Veterans Affairs (VA).VA Functional [place] Measurement (FIM) Scale: 1 = Total Assistance (Subject = 0% +), 2 = Maximal Assistance (Subject = 25% +), 3 = Moderate Assistance (Subject = 50% +), 4 = Minimal Assistance (Subject = 75% +), 5 = Supervision, 6 = Modified [place] (Device), 7 = Complete [place] (Timely, Safely). Assessment Date/Time Source Assessment Type Assessment Skill Assessment Score Assessment Details No data available for this section
[2024-04-17 22:13] VITALS: BP 142/91; PULSE 84; RESP 16; TEMP 36.6; O2SAT 97
[2024-04-17] MEDS: methocarbamoL 750 MG TABLET 1500 MG PO (23:54)
[2024-04-18] MEDS: Ketorolac Tromethamine 15 MG/ML VIAL IM (00:03)
[2024-04-18 00:04] VITALS: BP 138/92; PULSE 84; RESP 18; TEMP 36.6; O2SAT 96
== END 2024-04-18 00:04 | disposition home or self-care (01) ==
PROVIDERS: Emergency Provider Emergency Medicine; PCP Physician Assistant
DX: S13.4XXA Sprain of ligaments of cervical spine, initial encounter (principal); S46.911A Strain of unspecified muscle, fascia and tendon at shoulder and upper arm level, right arm, initial encounter; V43.52XA Car driver injured in collision with other type car in traffic accident, initial encounter; Y93.89 Activity, other specified; Y92.414 Local residential or business street as the place of occurrence of the external cause; Y99.9 Unspecified external cause status
CPT/HCPCS: 70450; 72125; 73030; 73070; 96372; 99284; J1885

== ENCOUNTER → 2024-04-17 20:31 | Outpatient (BNV) | payer OTHER, MEDICAID, SELFPAY | PROVIDERS: Emergency Provider Emergency Medicine; PCP Physician Assistant; Visit Provider Student in an Organized Health Care Education/Training Program | DX: S19.9XXA Unspecified injury of neck, initial encounter (principal); G89.11 Acute pain due to trauma; M25.511 Pain in right shoulder; M25.521 Pain in right elbow | CPT/HCPCS: 70450; 72125; 73030; 73070 ==

== ENCOUNTER 2024-07-30 08:25 | Emergency (ER) | payer OTHER, MEDICAID, SELFPAY ==
[2024-07-30 08:30] VITALS: BP 119/83; PULSE 99; RESP 18; TEMP 36.2; O2SAT 97; BMI 27.6
[2024-07-30 09:03] VITALS: BP 144/90; PULSE 91; RESP 16; TEMP 36.4; O2SAT 97
--- NOTE | 2024-07-30 09:09 | PC.NURSE ---
Patient A&O x 4. Patient presents to ED with c/o abscess to left thigh. Patient reports it started about 10 days ago, patient uses special wash for skin. Patient followed up with derm who prescribed clindamycin gel. Symptoms worsened patient was prescribed doxy which she has completed but symptoms continue to worsen with fever (101.6), chills, N/V. Patient slightly tachy but all other VSS. Plan of care on going.
--- OUTSIDE RECORDS SUMMARY | 2024-07-30 09:15 | XMS_ITS | Continuity of Care Document ---
Author Name [facility] Organization [facility] Care Team Providers Care Manager Social Services Name Role Phone [facility] Unavailable Unavailable Immunizations Combined list of available immunizations from the Department of Defense and Veterans Affairs facilities. Immunization Series Date Given Administered By Site Reaction Lot Number CVX Code Drug Aluminum Siding Installer Status Comments Source hepatitis A adult vaccine 2019 [id number] GlaxoSmithKli ne complet ed hepatitis A adult vaccine 01/18/20 Given Ambulat ory Pharmac y tetanus, diphtheria, acellular pertu is 2019 [id number] GlaxoSmithKli ne complet ed tetanus, diphtheri a, acellular pertussis 01/18/20 Given Ambulat ory Pharmac y poliovirus vaccine, inactivated 2019 [id number] sanofi pasteur complet ed polioviru s vaccine, inactivat ed 01/18/20 Given Ambulat ory Pharmac y adenovirus vaccine, live 2019 [id number] 143 Teva Pharmaceutica ls complet ed adenoviru s vaccine, live 01/18/20 Given Ambulat ory Pharmac y meningococcal A,C,Y,W-135 (MCV4P) 2019 [id number] sanofi pasteur complet ed meningoco ccal A,C,Y,W-1 35 (MCV4P) 01/18/20 Given Ambulat ory Pharmac y Procedures Combined list of: 1) Procedures from Department of Veterans Affairs facilities [facility], not all [place] non-surgical procedures are included; 2) All procedures from the Department of Defense facilities. Procedure Procedure Type Code Date Perfomer Comments Sourc e No data available for this section Ambulatory P harmacy Assessment and Plan Combined list of future care activities from Department of Defense and Veterans Affairs facilities (e.g., assessment and plan notes, appointments, orders, and referrals). Additional future care activities may be listed in the Plan of Care section. Result Assessment and Plan Date Source Assessment and Plan No data available for this section 07/30/2024 Ambulatory Pharmacy Functional Status Combined list of recent functional and cognitive assessments recorded at Department of Defense and Veterans Affairs (VA).VA Functional [place] Measurement (FIM) Scale: 1 = Total Assistance (Subject = 0% +), 2 = Maximal Assistance (Subject = 25% +), 3 = Moderate Assistance (Subject = 50% +), 4 = Minimal Assistance (Subject = 75% +), 5 = Supervision, 6 = Modified [place] (Device), 7 = Complete [place] (Timely, Safely). Assessment Date/Time Source Assessment Type Assessment Skill Assessment Score Assessment Details No data available for this section
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
--- OUTSIDE RECORDS SUMMARY | 2024-07-30 09:16 | XMS_ITS | Encounter Summary ---
Author Organization [facility] Address [address] [place] [address] Care Team Providers Care Electronic Warfare Linguist Name Role Phone Unavailable Primary Care Provider Unavailabl e Reason for Visit * Reason Comments Cyst of Skin X4 days left thigh Encounter Details Date Type Department Care Team (Latest Contact Info) Description 07/26/2024 8:00 AM EDT Telemedicine Visit [id number] [place] [phone] Ruth Ann Kay PA-C [address] [place] [address] H/O hidradenitis suppurativa (Primary Dx); Abscess Social History Tobacco Use Types Packs/Day Years Used Date Smoking Tobacco: Every Day Cigarettes Smokeless Tobacco: Never Tobacco Cessation:Ready to Q uit: Not Asked; Counseling Given: Not Answered Alcohol Use Standard Drinks/Week Comments Not Currently 0 (1 standard drink = 0.6 oz pur e alcohol) Social Connections Answer Date Recorded Connectedness 0 [...] on file Sexual Orientation Not on file documented as of this encounter Last Filed Vital Signs Vital Sign Reading Time Taken Comments Blood Pressure - - Pulse - - Temperature - - Respiratory Rate - - Oxygen Saturation - - Inhaled Oxygen Concentration - - Weight 70.3 kg (155 lb) 07/26/2024 3:36 PM EDT Height 157.5 cm (5' 2 ) 07/26/2024 3:36 PM EDT Body Mass Index 28.35 07/26/2024 3:36 PM EDT documented in this encounter Progress Notes * Ruth Ann Kay PA-C - 07/27/2024 7:41 AM EDTAddended by: RUTH ANN KAY on: 07/27/2024 07:41 AM Modules accepted: Level of Service * Ruth Ann Kay PA-C - 07/26/2024 3:54 PM EDT Images from the original note were not included. Subjective: CC: Cyst of Skin (X4 days left thigh) HPI: Meg Rizzo is a 34 year old female patient who presents for evaluation of left thigh pain with abscess. Left thigh pain with abscess and surrounding erythema x 4 days. Patient reports hx of hidradenitis suppurativa - f/u with dermatology Dr. Rg. Denies fevers, chills, N/V, and discharge. Using Benzyl peroxide 3% wash & topical clindamycin 2% gel with no relief. Patient denies and or risk of - not sexually active Allergies Allergen Reactions Adhesive Latex Sulfa (Sulfonamide Antibiotics) There is no problem list on file for this patient. Current Outpatient Medications Medication Sig Dispense Refill albuterol HFA 90 mcg/actuation inhaler INHALE 2 PUFFS BY MOUTH EVERY 4 (FOUR) HOURS IF NEEDED FOR WHEEZING OR SHORTNESS OF BREATH. doxycycline (VIBRAMYCIN) 100 mg capsule Take 1 Capsule by mouth 2 (two) times daily for 7 days 14 Capsule 0 nicotine (NICODERM, STEP 2) 14 mg/[address] 1 PATCH ON THE SKIN 1 TIME EACH DAY AT THE SAMETIME. SUMAtriptan succinate (IMITREX) 50 mg tablet TAKE 1 TABLET 1 TIME IF NEEDED FOR MIGRAINE. MAY REPEAT ONCE IN 2 HOURS IF NO RELIEF *MAX 2/24 HOURS No current facility-administered medications for this visit. Objective: Vitals: Height 5' 2 (1.575 m), weight 155 lb (70.3 kg), last menstrual period 07/05/2024. Physical Exam Constitutional: Appearance: Normal appearance. HENT: Head: Normocephalic and atraumatic. Cardiovascular: Rate and Rhythm: Normal rate and regular rhythm. Pulmonary: Effort: Pulmonary effort is normal. Breath sounds: Normal breath sounds. Abdominal: General: Abdomen is flat. There is no distension. Palpations: Abdomen is soft. Tenderness: There is no abdominal tenderness. Musculoskeletal: General: Normal range of motion. Cervical back: Normal range of motion. Right lower leg: No edema. Left lower leg: No edema. Skin: Findings: Lesion present. Comments: 1.5 cm painful, erythematous, edematous, fluctuant mass to left inner thigh - surroundingerythema. No discharge. Neurological: General: No focal deficit present. Mental Status: She is alert. Psychiatric: Mood and Affect: Mood normal. Assessment/Plan: Z87.2 H/O hidradenitis suppurativa (primary encounter diagnosis) Plan : DOXYCYCLINE HYCLATE 100 MG CAPSULE - Take 1 Capsule by mouth 2 (two) times daily for 7 days L02.91 Abscess Plan : DOXYCYCLINE HYCLATE 100 MG CAPSULE - Take 1 Capsule by mouth 2 (two) times daily for 7 days - Drug allergy Sulfa - Patient to monitor for signs of infection/spreading - Further tx possible I&D - F/u with dermatology - pt reports she will be scheduling appt for next week - Patient understands and agrees with the plan of care. Questions answered. If any new or worseningsymptoms/ if symptoms do not improve as expected, patient may report to the ER or call 911. Contingency to seek urgent/emergent care discussed. Return if symptoms worsen or fail to improve. Ruth Ann Kay PA-C documented in this encounter Miscellaneous Notes * Patient Instructions - Ruth Ann Kay PA-C - 07/26/2024 4:08 PM EDT If you are not able to keep your appointment please call 24-48 hours before your appointment to cancel or reschedule. documented in this encounter Plan of Treatment Not on file documented as of this encounter Visit Diagnoses Diagnosis H/O hidradenitis suppurativa- Primary Personal history of diseases of skin and subcutaneous tissue Abscess Cellulitis and abscess of unspecified site documented in this encounter
--- OUTSIDE RECORDS SUMMARY | 2024-07-30 09:16 | XMS_ITS | Clinical Summary ---
Author Organization [facility] Address [address] [place] [address] Care Team Providers Care Security Screener Name Role Phone Unavailable Primary Care Provider Unavailabl e Source Comments PLEASE NOTE, if this patient is a minor, it may be UNLAWFUL to discuss sensitive information that is contained in these records (such as FAMILY PLANNING, MENTAL HEALTH or SUBSTANCE ABUSE) with the minor patient's parent or other person without the patient's specific authorization.[facility] Allergies Active Allergy Reactions Criticality Noted Date Comments Adhesive 01/28/2022 Latex 01/28/2022 Sulfa (Sulfonamide Antibiotics) 01/19 Medications albuterol HFA 90 mcg/actuation inhaler INHALE 2 PUFFS BY MOUTH EVERY 4 (FOUR) HOURS IF NEEDED FOR WHEEZING OR SHORTNESS OF BREATH. 5 Active SUMAtriptan succinate (IMITREX) 50 mg tablet TAKE 1 TABLET 1 TIME IF NEEDED FOR MIGRAINE. MAY REPEAT ONCE IN 2 HOURS IF NO RELIEF *MAX 2/24 HOURS 5 Active nicotine (NICODERM, STEP 2) 14 mg/[address] 1 PATCH ON THE SKIN 1 TIME EACH DAY AT THE SAME TIME. 5 Active doxycycline (VIBRAMYCIN) 100 mg capsuleIndication s:H/O hidradenitis suppurativa,Absce ss Take 1 Capsule by mouth 2 (two) times daily for 7 days 14 Capsule 5 08/03/19 25 Active Encounters Date Type Department Care Team Description 07/26/2024 8:00 AM EDT Telemedicine Visit [facility] [address] [place] [phone] Linda Kay PA-C H/O hidradenitis suppurativa (Primary Dx); Abscess from Last 3 Months Social History Tobacco [...] on file Sexual Orientation Not on file Last Filed Vital Signs Vital Sign Reading Time Taken Comments Blood Pressure - - Pulse - - Temperature - - Respiratory Rate - - Oxygen Saturation - - Inhaled Oxygen Concentration - - Weight 70.3 kg (155 lb) 07/26/2024 3:36 PM EDT Height 157.5 cm (5' 2 ) 07/26/2024 3:36 PM EDT Body Mass Index 28.35 07/26/2024 3:36 PM EDT Plan of Treatment Health Maintenance Due Date Last Done Comments Anxiety Screening 1990 HPV Screening 1990 Hepatitis C Screening 1990 Pap + HPV 1990 Relationship Safety Screening/Counseling 2005 Hypertension Screening (#1) 2008 Imm-Pneumococcal (1 of 2 - PCV) 2009 Cervical Cancer Screening 06/12/2011 Pap Smear 06/12/2011 [id number] ( season) 2023 Imm-Influenza (#1) 2023 12/30/2017 Alcohol and Drug Screen 03/21/2024 Depression Annual Screen 03/21/2024 Tobacco Cessation Counseling (#1) 07/26/2025 Imm-DTaP/Tdap/Td (8 - Td or Tdap) 01/17/2030 01/18/2020, 07/14/2015, 10/24/2002, Additional history exists Imm-Hepatitis B Completed 01/03/1996, 05/19, 05/05/1995 HIV Screening Completed 09/08/2022 Cervical Ablation/Cold-Knife Conization Discontinued Cervical Cryotherapy Discontinued Colposcopy Discontinued Endometrial Biopsy Discontinued Excision/Leep Discontinued HPV Genotyping Discontinued Vaginal Pap Discontinued Vulvoscopy Discontinued Insurance [facility] ([facility]) Member Subscriber Plan / Payer (Ef fective 2024-Present) Name:Meg Rizzo Relation to Subscriber:Self Name:Meg Rizzo Payer ID:[id number] Group ID:Not on file Type:Isael Address: [address] [place] [address]
--- NOTE | 2024-07-30 09:17 | PC.NURSE ---
Abscess on left inner thigh red and indurated, Abscess noted to be draining small amount fluid. Patient stated it started draining last night, but no relief .
--- NOTE | 2024-07-30 09:23 | ED_ITS ---
HPI - General Adult General Chief complaint: Skin/Abscess/Foreign Body Stated complaint: Cyst L Inner Thigh Time Seen by Provider: 07/30/24 09:08 Source: RN notes reviewed and old records reviewed Mode of arrival: ambulatory Limitations: no limitations History of Present Illness ED Provider: Carlos HPI narrative: Patient is a 34-year-old female with history of hidradenitis suppurativa presenting to the emergency department with complaint of painful wound to left inner thigh. States that she usually uses hydrogen peroxide wash and topical clindamycin when she begins to develop symptoms. Feels this episode was triggered by wearing a certain pair of shorts. Just finished a 7-day course of doxycycline and feels symptoms are not improving. Reports some purulent drainage. Last night had one episode of vomiting and fever to 101.6, afebrile today. MD complaint: abscess Onset (ago): day(s) Related Data Previous Rx's ?Medication ?Instructions ?Recorded acetaminophen 500 mg tablet 1,000 mg (2 x 500 mg) PO QID PRN 03/10/21 (Tylenol Extra Strength) fever or pain #14 tabs amoxicillin 875 mg-potassium 1 tab PO BID 10 days #20 tabs 03/10/21 clavulanate 125 mg tablet (Augmentin) chlorhexidine gluconate 0.12 % 15 ml mucous membrane BID #473 mL 03/10/21 mouthwash ibuprofen 800 mg tablet 800 mg PO Q8H PRN pain #14 tabs 03/10/21 oxycodone 5 mg tablet 5 mg PO Q6H PRN pain #14 tabs 03/10/21 ketorolac 10 mg tablet 10 mg PO TID PRN pain 5 days 05/19/21 penicillin V potassium 500 mg 500 mg PO TID 10 days #30 tabs 05/19/21 tablet acetaminophen 325 mg capsule 325 mg PO Q4H PRN pain #30 caps 09/24/23 (Tylenol) ketorolac 10 mg tablet 10 mg PO TID PRN pain 5 days #15 09/24/23 tabs lidocaine 5 % topical patch 1 patch topical DAILY PRN pain #15 09/24/23 ea meloxicam 15 mg tablet 15 mg PO DAILY #7 tabs 04/17/24 methocarbamol 750 mg tablet 750 mg PO Q8H PRN pain, moderate 04/17/24 #10 tabs cephalexin 500 mg capsule 500 mg PO QID #28 caps 07/30/24 doxycycline hyclate 100 mg capsule 100 mg PO BID #14 caps 07/30/24 Allergies Allergy/AdvReac Type Severity Reaction Status Date / Time adhesive Allergy Intermediate Blister Verified 07/30/24 08:34 Latex, Natural Rubber Allergy Intermediate Swelling Verified 07/30/24 08:34 Sulfa (Sulfonamide Allergy Unknown ANAPHYLAXIS Verified 07/30/24 08:34 Antibiotics) Review of Systems 2 Review of Systems: As per HPI Yes all other systems are reviewed and are negative Constitutional: Constitutional: Reports as per HPI [facility] Past Medical History Medical History delivery delivered Cholecystitis Family History Family History Other Patient denies medical problems Social History Social History (System 01/04/23 @ 11:48 by Adriana Mota) Alcohol intake: never Patient Tobacco Use Status: Never used Tobacco Smoked in Last 30 Days: Yes Use of substances other than those prescribed or required for medical reasons: No Advance Directives: No Advance Directives Information Provided: Yes Do you have a plan to hurt others: No Plan Patient : No Physical Exam ED Vital Signs: Vital Signs - 24 hr 07/30/24 08:30 07/30/24 09:03 07/30/24 10:00 Temperature 97.2 F 97.6 F 98.2 F Pulse Rate 99 91 75 Respiratory Rate 18 16 12 Blood Pressure 119/83 144/90 H 125/77 Pulse Oximetry 97 97 99 Oxygen Delivery Method Room Air Room Air Room Air BMI result Body Mass Index 27.6 Vital signs have been reviewed and appear to be correct. Blood pressure normal. Heart rate normal. Respiratory rate normal. Temperature normal. Oxygen saturation normal. Const General: cooperative, healthy appearing and no acute distress Orientation/consciousness: oriented to person, oriented to place, oriented to time and patient oriented x3 Limitations: no limitations HENMT Head: Yes normocephalic and Yes atraumatic Ears: external ears normal General nose exam: Normal external nose present Face and sinus: Yes face symmetric Mouth: oropharynx normal and moist mucous membranes Throat: Yes uvula midline Eyes Pupils: Equal, round and reactive pupils present Neck Neck: Yes normal visual inspection and Yes supple Resp Effort & Inspection: normal respiratory effort and able to speak in complete sentences Auscultation: clear to auscultation bilaterally Cardio Rate: regular rate Rhythm: regular rhythm Heart sounds: S1 normal heart sound present and S2 normal heart sound present GI Palpation (GI): Soft to palpation and nontender Auscultation: normoactive bowel sounds General: Yes no CVA tenderness Back/Spine/Pelvis Back: no CVA tenderness Skin General skin exam: elasticity normal and turgor normal Neuro General: oriented to person, oriented to place, oriented to time, patient oriented x3, moves all extremities, no focal motor deficits and CN's II-XI intact bilaterally Cranial nerves: Yes Equal, round and reactive pupils present Cognition (Neuro): normal cognition Extrem Other: General: Yes full ROM, Yes no pedal edema and Yes no calf tenderness Left lower extremity: hip/thigh Details: tenderness Location: of the proximal upper leg Location: medially, swelling Location: of the proximal upper leg, warmth (medial proximal thigh) and other (3cm diameter area of induration and erythema surrounded by erythema and warmth, no fluctuance, central opening) Psych Mental Status: mental status grossly normal Affect: normal affect Thought process: Normal thought process present Medical Decision Making Medical Decision Making [facility] Narrative: Patient is a 34-year-old female with history of hidradenitis suppurativa presenting to the emergency department with complaint of painful wound to left inner thigh. On exam patient is awake, A+Ox3, VS WNL, afebrile, normal neurological exam without focal deficits, physical exam findings as above. Given reported symptoms and physical exam findings, initial differential includes but is not limited to abscess, cellulitis. Do not suspect sepsis at 09:58. Labs notable for no leukocytosis, only slightly elevated ESR/CRP, normal lactic. Do not feel patient requires admission for IV antibiotics at this time. Will discharge on additional doxycycline and add keflex as well. Advised patient to soak in warm water several times daily. Strict return precautions discussed. Patient verbalized understanding of and agreement with plan. Differential Diagnosis Differential Diagnoses: The differential diagnosis associated with the presentation includes as per [facility] Admission/Observation Consideration of admission/observation: Escalation of care including admission/observation considered Patient would have been admitted to the hospital had their work up had any findings where hospital admission was appropriate and their clinical presentation warranted hospital admission. Lab Data [facility] Lab Attestation statement: I reviewed the patient's lab results. As per MDM 07/30/24 09:58 07/30/24 09:58 Labs: Lab Results 07/30/24 07/30/24 Range/Units 09:57 09:58 WBC 8.0 (4.8-10.8) X10*3/uL RBC 4.45 (4.20-5.50) X10*6/uL Hgb 13.3 (12.0-16.0) g/dl Hct 38.3 (37.0-47.0) % MCV 86.1 (80.0-98.0) fL MCH 29.9 (27.0-33.0) pg MCHC 34.7 (31.0-35.0) g/dl RDW 13.1 (11.0-16.0) % Plt Count 373 (160-400) X10*3/uL MPV 9.0 L (9.4-12.3) fL Immature Gran % (Auto) 0.2 (0.0-0.4) % Neut % (Auto) 64.5 (45-73) % Lymph % (Auto) 25.9 (20-40) % [place] % (Auto) 7.5 (2-11) % Eos % (Auto) 1.5 (0-4) % Baso % (Auto) 0.4 (0-2) % Lymph # (Auto) 2.1 (1.2-4.9) X10*3/uL [place] # (Auto) 0.6 (0.1-1.2) X10*3/uL Eos # (Auto) 0.1 (0.0-0.4) X10*3/uL Baso # (Auto) 0.0 (0.0-0.2) X10*3/uL Abs Immat Gran (auto) 0.02 (0.00-0.03) X10*3/uL Absolute Neuts (auto) 5.2 (2.0-8.3) x10*3/uL Absolute Nucleated RBC 0.000 (0.0-0.012) X10*3/uL Nucleated RBC % (auto) 0.0 (0.0-0.2) /100WBC ESR 13 (0-20) MM/HR Sodium 139 (135-145) mmol/L Potassium 3.7 (3.3-5.1) mmol/L Chloride 106 (96-108) mmol/L Carbon Dioxide 24 (22-29) mmol/L Anion Gap 13 (12-20) BUN 16 (9-16) mg/dL Creatinine 0.70 (0.5-1.4) mg/dL Estim Creat Clear Calc 102.7 Estimated GFR > 60 Random Glucose 95 (60-115) mg/dL Lactic Acid 0.8 (0.5-2.0) mmol/L Calcium 9.3 (8.4-10.2) mg/dL Total Bilirubin 0.6 (0.0-1.0) mg/dL AST 22 (5-31) U/L ALT 24 (0-31) U/L Alkaline Phosphatase 76 (39-117) U/L C-Reactive Protein 1.03 H (< or = 0.50) mg/dL Total Protein 7.4 (6.5-8.0) g/dL Albumin 4.3 (3.5-5.0) g/dL External Record Review External record reviewed: Inpatient record, Office record and Outpatient record Prescription Management I considered prescription management with: Antibiotic Discharge Plan Discharge Clinical Impression: Abscess of skin or subcutaneous tissue, Cellulitis Patient Disposition: Home, Self-Care Instructions: Abscess (ED), Abscess Incision and Drainage (DC) Additional Instructions: You have been evaluated in the emergency department today for skin infection, also known as cellulitis. If the area of inflammation was outlined today in the ER, please return to the ER immediately if the area of redness increases beyond the border. Please take your prescribed antibiotics as directed for the full course of the medication. We recommend soaking in warm water for 10-15 minutes several times daily or applying warm, moist compresses. You can use Tylenol or ibuprofen per package instructions every 6 hours as needed for pain. If necessary, you can alternate these medications so that you can take one medication every 3 hours. For instance, at noon take ibuprofen, then at 3:00 p.m. take Tylenol, then at 6:00 p.m. take ibuprofen. Please schedule an appointment for follow-up with your primary care physician as soon as possible. Return to the emergency department if you experience recurrent vomiting, fevers greater than 100.4? F, increasing area of redness, warmth around the area, foul- smelling discharge from the area, increased tenderness around the area, or any other concerning symptoms. Prescriptions: New doxycycline hyclate 100 mg capsule 100 mg PO BID Qty: 14 0RF cephalexin 500 mg capsule 500 mg PO QID Qty: 28 0RF No Action amoxicillin-pot clavulanate [Augmentin] 875-125 mg tablet 1 tab PO BID 10 Days Qty: 20 0RF ibuprofen 800 mg tablet 800 mg PO Q8H PRN (Reason: pain) Qty: 14 0RF acetaminophen [Tylenol Extra Strength] 500 mg tablet 1,000 mg PO QID PRN (Reason: fever or pain) Qty: 14 0RF chlorhexidine gluconate 0.12 % mouthwash 15 ml mucous membrane BID Qty: 473 0RF oxycodone 5 mg tablet 5 mg PO Q6H PRN (Reason: pain) Qty: 14 0RF penicillin V potassium 500 mg tablet 500 mg PO TID 10 Days Qty: 30 0RF ketorolac 10 mg tablet 10 mg PO TID PRN (Reason: pain) 5 Days 0RF Rx Instructions: Do not use ibuprofen, naproxen, Motrin, only use Tylenol if needed ketorolac 10 mg tablet 10 mg PO TID PRN (Reason: pain) 5 Days Qty: 15 0RF lidocaine 5 % adhesive patch,medicated 1 patch topical DAILY PRN (Reason: pain) Qty: 15 0RF Rx Instructions: leave on most painful area for up to 12 hrs acetaminophen [Tylenol] 325 mg capsule 325 mg PO Q4H PRN (Reason: pain) Qty: 30 0RF meloxicam 15 mg tablet 15 mg PO DAILY Qty: 7 0RF methocarbamol 750 mg tablet 750 mg PO Q8H PRN (Reason: pain, moderate) Qty: 10 0RF Print Language: [place]
--- NOTE | 2024-07-30 09:59 | PC.NURSE ---
Abscess draining serosang fluid, cleansed area with NS, pat dry. [place] drawn around outer [place] reddened area of wound. Blood obtained/sent to lab 20G placed in LAC, patent PA into see patient
[2024-07-30 10:00] VITALS: BP 125/77; PULSE 75; RESP 12; TEMP 36.8; O2SAT 99
[2024-07-30 10:03] LABS: MANUAL DIFF FLAG NO
[2024-07-30 10:06] LABS: Basophils Percent Auto 0.4 % (0-2); Eosinophils Absolute Auto 0.1 X10*3/uL (0.0-0.4); Eosinophils Percent Auto 1.5 % (0-4); Hematocrit 38.3 % (37.0-47.0); Hemoglobin 13.3 g/dl (12.0-16.0); Imm Gran Abs Auto 0.02 X10*3/uL (0.00-0.03); Imm Gran Pct Auto 0.2 % (0.0-0.4); Lymphocytes Absolute Auto 2.1 X10*3/uL (1.2-4.9); Lymphocytes Percent Auto 25.9 % (20-40); Mean Corpuscular HGB Conc 34.7 g/dl (31.0-35.0); Mean Corpuscular Hemoglobin 29.9 pg (27.0-33.0); Mean Corpuscular Volume 86.1 fL (80.0-98.0); Monocytes Absolute Auto 0.6 X10*3/uL (0.1-1.2); Monocytes Percent Auto 7.5 % (2-11); Neutrophils Absolute Auto 5.2 x10*3/uL (2.0-8.3); Neutrophils Percent Auto 64.5 % (45-73); Platelet Count 373 X10*3/uL (160-400); Red Blood Count 4.45 X10*6/uL (4.20-5.50); Red Cell Distribution Width 13.1 % (11.0-16.0)
[2024-07-30 10:20] LABS: Alanine Aminotransferase 24 U/L (0-31); Albumin Level 4.3 g/dL (3.5-5.0); Alkaline Phosphatase 76 U/L (39-117); Anion Gap 13 (12-20); Aspartate Amino Transferase 22 U/L (5-31); Bilirubin Total 0.6 mg/dL (0.0-1.0); Blood Urea Nitrogen 16 mg/dL (9-16); C Reactive Protein 1.03 mg/dL (< or = 0.50); Calcium 9.3 mg/dL (8.4-10.2); Carbon Dioxide 24 mmol/L (22-29); Chloride 106 mmol/L (96-108); Creatinine Clr Calc Pharmacy 102.7; Estimated Glomerular Filt Rate > 60; Glucose Random 95 mg/dL (60-115); Potassium 3.7 mmol/L (3.3-5.1); Sodium 139 mmol/L (135-145); Total Protein 7.4 g/dL (6.5-8.0)
[2024-07-30 10:31] LABS: Lactic Acid 0.8 mmol/L (0.5-2.0)
[2024-07-30 10:42] LABS: Erythrocyte Sedimentation Rate 13 MM/HR (0-20)
--- NOTE | 2024-07-30 11:09 | PC.NURSE ---
Report received. Taken over care at this time.
[2024-07-30] MEDS: cefTRIAXone sodium 1 GM VIAL IVPUSH (11:29)
[2024-07-30 11:50] VITALS: BP 125/77; PULSE 71; RESP 18; TEMP 37.2; O2SAT 97
== END 2024-07-30 11:51 | disposition home or self-care (01) ==
PROVIDERS: Registered Nurse Emergency; Emergency Provider Emergency Medicine Emergency Medical Services; PCP Physician Assistant
DX: L02.416 Cutaneous abscess of left lower limb (principal); L03.116 Cellulitis of left lower limb
CPT/HCPCS: 36415; 80053; 83605; 85025; 85652; 86140; 87040; 99284; J0696

== ENCOUNTER 2025-02-10 13:20 | Emergency (ER) | payer MEDICAID, SELFPAY ==
--- NOTE | ~2025-02-10 | XR_ITS ---
CLINICAL HISTORY: pain, injury 4 view right wrist Comparison: None provided Findings: Bones intact. No dislocations. No significant loss of joint space, osteophyte, or erosions. No radiopaque foreign body. IMPRESSION: No acute fracture or dislocation. This document has been electronically signed by: Izabella Cruz DO on 02/10/2025 14:18:41
--- NOTE | ~2025-02-10 | CT_ITS ---
CLINICAL HISTORY: further evaluation of wrist, snuffbox tenderness+ CT RIGHT WRIST WITHOUT CONTRAST Comparison: CR - XR WRIST RT MIN 3V - 02/10/25 13:46 EST Findings: Intact scaphoid and scapholunate interval. No other fracture identified. No dislocation. No significant degenerative changes. No foreign body. IMPRESSION: No acute fracture or dislocation. This document has been electronically signed by: Izabella Cruz DO on 02/10/2025 17:10:18
--- NOTE | ~2025-02-10 | XR_ITS ---
CLINICAL HISTORY: pain, injury 3 view right hand Comparison: None provided Findings: Bones intact. No dislocations. No significant arthritic change. No erosions. No radiopaque foreign body. IMPRESSION: No acute fracture or dislocation. This document has been electronically signed by: Izabella Cruz DO on 02/10/2025 14:36:47
--- NOTE | 2025-02-10 13:38 | ED_ITS ---
HPI - General Adult General Chief complaint: Extremity Injury, Lower Stated complaint: ? R Hand Fx 02/08/25 Time Seen by Provider: 02/10/25 14:15 Source: patient Mode of arrival: ambulatory Limitations: no limitations History of Present Illness ED Provider: Charlee Taylor PA-C HPI narrative: Patient is a 34 year old assigned female at with no reported medical history presenting to the emergency department today with right wrist and hand pain. Patient states that on 02/08/2025 her mastiff / pitbull mix smashed her right hand / wrist causing injury. Patient states that she got concerned because she is continuing to have pain and it is difficult for her to touch her thumb to her finger tips on her right hand. Patient states that she is right hand dominant. Patient denies any other complaints at this time. Pain Consistency: constant Relieving factors: none Exacerbating factors: movement Associated symptoms: denies other symptoms Treatments prior to arrival: none Related Data Previous Rx's ?Medication ?Instructions ?Recorded acetaminophen 500 mg tablet 1,000 mg (2 x 500 mg) PO Q ID PRN 03/10/21 (Tylenol Extra Strength) fever or pain #14 tabs amoxicillin 875 mg-potassium 1 tab PO BID 10 days #20 tabs 03/10/21 clavulanate 125 mg tablet (Augmentin) chlorhexidine gluconate 0.12 % 15 ml mucous membrane B ID #473 mL 03/10/21 mouthwash ibuprofen 800 mg tablet 800 mg PO Q8H PRN pain #14 t abs 03/10/21 oxycodone 5 mg tablet 5 mg PO Q6H PRN pain #14 tab s 03/10/21 ketorolac 10 mg tablet 10 mg PO TID PRN pain 5 days 05/19/21 penicillin V potassium 500 mg 500 mg PO TID 10 days #3 0 tabs 05/19/21 tablet acetaminophen 325 mg capsule 325 mg PO Q4H PRN pain #3 0 caps 09/24/23 (Tylenol) ketorolac 10 mg tablet 10 mg PO TID PRN pain 5 days #15 09/24/23 tabs lidocaine 5 % topical patch 1 patch topical DAILY PRN pain #15 09/24/23 ea meloxicam 15 mg tablet 15 mg PO DAILY #7 tabs 04/17 methocarbamol 750 mg tablet 750 mg PO Q8H PRN pain, mo derate 04/17/24 #10 tabs cephalexin 500 mg capsule 500 mg PO QID #28 caps 07/30 doxycycline hyclate 100 mg capsule 100 mg PO BID #14 c aps 07/30/24 Allergies Allergy/AdvReac Type Severity Reaction Status Date / Time adhesive Allergy Intermediate Blister Verified 02/10/25 13:40 Latex, Natural Rubber Allergy Intermediate Swelling Verified 02/10/25 13:40 Sulfa (Sulfonamide Allergy Unknown ANAPHYLAXIS Verified 02/10/25 13:40 Antibiotics) Review of Systems Constitutional: Constitutional: Reports as per HPI Eyes: Eyes: Reports as per HPI ENT: Reports as per HPI Cardiovascular: Cardiovascular: Reports as per HPI Respiratory: Respiratory: Reports as per HPI Gastrointestinal: Gastrointestinal: Reports as per HPI Genitourinary: Genitourinary: Reports as per HPI Musculoskeletal: Musculoskeletal: Reports as per HPI Integumentary/Breasts: Skin/Breast: Reports as per HPI Neurologic: Reports as per HPI Psychiatric: Psychiatric: Reports as per HPI Endocrine: Endocrine: Reports as per HPI Hematologic/Lymphatic: Hematologic/Lymphatic: Reports as per HPI Allergic/Immunologic: Allergic/Immunologic: Reports as per HPI [facility] Past Medical History Attestation statement: The following information was validated with the patient. Source: old records reviewed and nursing notes reviewed Medical History delivery delivered Cholecystitis Family History Family History Other Patient denies medical problems Social History Social History Alcohol intake: never Patient Tobacco Use Status: Never used Tobacco Advance Directives: No Advance Directives Information Provided: No Physical Exam ED Vital Signs: Vital Signs - 24 hr 02/10/25 13:40 Temperature 98.0 F Pulse Rate 79 Respiratory Rate 18 Blood Pressure 155/102 H Pulse Oximetry 97 Oxygen Delivery Method Room Air BMI result Body Mass Index 26.2 Const General: cooperative, no acute distress, alert and awake Nutritional Appearance: well nourished Orientation/consciousness: patient oriented x3 HENMT Head: Yes normal to inspection and Yes atraumatic Ears: hearing grossly normal bilaterally and external ears normal General nose exam: Normal external nose present, no nasal discharge noted and no epistaxis Face and sinus: Yes normal facial exam, No abrasion and No laceration Mouth: Normal oral and palatal mucosa present, no drooling and no muffled voice Eyes General: appearance normal, both eyes and all related structures Periorbital: periorbital findings normal Eyelids: Yes eyelids normal Conjunctivae: conjunctivae normal Pupils: Equal, round and reactive pupils present EOM: EOMs intact bilaterally Neck Neck: Yes normal visual inspection and Yes full ROM Resp Effort & Inspection: normal respiratory effort and able to speak in complete sentences Neuro General: patient oriented x3, moves all extremities and CN's II-XI intact bilaterally Cranial nerves: Yes Equal, round and reactive pupils present Cognition (Neuro): normal cognition Extrem Other: healing bruising present to the volar aspect of the right wrist inability to touch the right thumb tip to the other right finger tips mild snuff box tenderness to palpation General: Yes capillary refill normal Psych Appearance: grossly normal Mental Status: mental status grossly normal Affect: normal affect Attitude: cooperative Thought process: Normal thought process present Thought content: Normal thought content present Insight: Good insight present (Psych) Course Course Course Narrative: Rapid medical examination performed in triage by Charlee Taylor PA-C: Patient is a 34 year old assigned female at presenting to the emergency department with right wrist pain. Patient states on 02/08/2025 her mastiff pit mix accidentally slammed her right hand and she has had pain ever since. De tailed physical exam and review of systems are deferred to the primary school principal. Imaging ordered. Patient placed back in the waiting room pending room availability and results. Procedures Orthopedic Splinting/Casting R wrist sprain: Side: right Upper Extremity Injury Location: wrist Upper Extremity Immobilizer: thumb spica Medical Decision Making Medical Decision Making MDM Narrative: Patient is a 34 year old assigned female at with no reported medical history presenting to the emergency department today with right wrist and hand pain. Patient's physical exam was as noted in the physical exam portion of this note. Patient's right hand and wrist x-ray showed no acute process. I spoke with the orthopedic team about my physical exam findings and they recommended a dry CT scan and a velcro thumb spica splint with outpatient follow up. Patient's wrist CT showed no acute process. Patient's clinical presentation is most consistent with a right wrist sprain / strain vs. ulnar collateral ligament sprain / strain vs. occult scaphoid fracture. I explained my physical exam findings as well as all test results to the patient. I answered all questions asked by the patient. Patient's right wrist was placed in a velcro thumb spica, without incident. Patient's PMS was intact prior to and after splint placement. I stressed the importance of the patient taking her medication as directed (either prescribed or as the over the counter packaging recommends). I stressed the importance of the patient following up with her primary care provider and the orthopedic team. I stressed the importance of the patient returning to the emergency department immediately if her symptoms were to worsen or if she were to develop any dizziness, shortness of breath, difficulty breathing, chest pain, blurry vision, loss of vision, nausea, vomiting, abdominal pain, fever, chills, back pain, or any other complaints. Patient verbalized agreement and understanding with this treatment plan and discharge. Differential Diagnosis Differential Diagnoses: The differential diagnosis associated with the presentation includes Right wrist pain Right wrist strain Right wrist sprain Ulnar collateral ligament sprain Ulnar collateral ligament strain Scaphoid fracture Admission/Observation Consideration of admission/observation: Escalation of care including admission/observation considered Patient would have been admitted to the hospital had her work up had any findings where hospital admission was appropriate and her clinical presentation warranted hospital admission. Consult Healthcare Provider Management of the patient was discussed with: Lamp Inspector (I spoke with the orthopedic team as noted in the MDM Rationale portion of this note. ) Independent Interpretation I performed an independent interpretation of an: Plain X-Ray (wrist + hand) and CT Scan (wrist) Interpretation: My interpretation is in agreement with the radiologist's impression of these imaging studies as written below. CLINICAL HISTORY: pain, injury 4 view right wrist Comparison: None provided Findings: Bones intact. No dislocations. No significant loss of joint space, osteophyte, or erosions. No radiopaque foreign body. IMPRESSION: No acute fracture or dislocation. This document has been electronically signed by: Izabella Cruz DO on 02/10/2025 14:18:41 Dictated By: Izabella Cruz MD Signed By: Electronically signed by Izabella Cruz MD 02/10/25 1419 CLINICAL HISTORY: pain, injury 3 view right hand Comparison: None provided Findings: Bones intact. No dislocations. No significant arthritic change. No erosions. No radiopaque foreign body. IMPRESSION: No acute fracture or dislocation. This document has been electronically signed by: Izabella Cruz DO on 02/10/2025 14:36:47 Dictated By: Izabella Cruz MD Signed By: Electronically signed by Izabella Cruz MD 02/10/25 1437 CLINICAL HISTORY: further evaluation of wrist, snuffbox tenderness+ CT RIGHT WRIST WITHOUT CONTRAST Comparison: CR - XR WRIST RT MIN 3V - 02/10/25 13:46 EST Findings: Intact scaphoid and scapholunate interval. No other fracture identified. No dislocation. No significant degenerative changes. No foreign body. IMPRESSION: No acute fracture or dislocation. This document has been electronically signed by: Izabella Cruz DO on 02/10/2025 17:10:18 Dictated By: Izabella Cruz MD Signed By: Electronically signed by Izabella Cruz MD 02/10/25 1701 Radiology Impression Discussion of test interpretation with radiology: I have reviewed the radiologist's reading. Critical Care Time Critical Care Time Critical Care Time: Yes Total Critical Care Time: 32 Attestation: I spent 32 minutes of Critical Care Time with this patient. This does not include time spent on separately reported billable procedures. Discharge Plan Discharge Clinical Impression: Right wrist sprain Patient Disposition: Home, Self-Care Instructions: Wrist Injury (ED), Wrist Sprain (ED) Additional Instructions: Your right hand + wrist x-ray showed no acute fracture / break. Your right wrist CT scan showed no evidence of an acute fracture / break. However, I am suspicious you have a significant ligament sprain / strain. Wear your thumb spica splint and follow up with the orthopedic team on an out patient basis. Do NOT get the splint wet and NEVER wear the splint so tight that the sensation / movement ability / color in your right fingers changes. Avoid use of your right hand / thumb until you are cleared to do so by the orthopedic team. IF you are prescribed home medications and/or you are taking over the counter medications at home - it is very important you continue to do so as prescribed / directed unless told otherwise by a healthcare provider. Follow up with your primary care provider. Do your best to stay well hydrated and rest. Return to the emergency department immediately if your symptoms worsen or if you develop any numbness, tingling, dizziness, shortness of breath, difficulty breathing, chest pain, blurry vision, loss of vision, nausea, vomiting, abdominal pain, fever, chills, back pain, or any other complaints. Please see the information below about our Patient Portal. If you are not yet enrolled in the [employer] [facility] Patient Portal, you will receive an enrollment email invitation following your visit to any [facility] setting. You may also self-enroll in the Patient Portal by visiting our website: [email or web address] The following information is required to access the Patient Portal: - Your [facility] Medical Record Number - Your personal home email address (must match what is in your electronic medical record, Registration staff can assist with this) - Name - Date of Capabilities of the Patient Portal: - Message some providers - View upcoming appointments - Access your health summary, medical history, and visit history - View current conditions and allergies - View procedure and lab results - View your medications, including guidelines, side effects, and precautions - Complete pre-appointment questionnaires requested by your provider - Ready summary reports of your office visits and procedures To access the Patient Portal Mobile Tere, follow these directions: - Search BlueKite in the Tere Store or Casenet Store - Download the Tere - Search for [employer] - Enter your login/password Prescriptions: No Action amoxicillin-pot clavulanate [Augmentin] 875-125 mg tablet 1 tab PO BID 10 Days Qty: 20 0RF ibuprofen 800 mg tablet 800 mg PO Q8H PRN (Reason: pain) Qty: 14 0RF acetaminophen [Tylenol Extra Strength] 500 mg tablet 1,000 mg PO QID PRN (Reason: fever or pain) Qty: 14 0RF chlorhexidine gluconate 0.12 % mouthwash 15 ml mucous membrane BID Qty: 473 0RF oxycodone 5 mg tablet 5 mg PO Q6H PRN (Reason: pain) Qty: 14 0RF penicillin V potassium 500 mg tablet 500 mg PO TID 10 Days Qty: 30 0RF ketorolac 10 mg tablet 10 mg PO TID PRN (Reason: pain) 5 Days 0RF Rx Instructions: Do not use ibuprofen, naproxen, Motrin, only use Tylenol if needed ketorolac 10 mg tablet 10 mg PO TID PRN (Reason: pain) 5 Days Qty: 15 0RF lidocaine 5 % adhesive patch,medicated 1 patch topical DAILY PRN (Reason: pain) Qty: 15 0RF Rx Instructions: leave on most painful area for up to 12 hrs acetaminophen [Tylenol] 325 mg capsule 325 mg PO Q4H PRN (Reason: pain) Qty: 30 0RF doxycycline hyclate 100 mg capsule 100 mg PO BID Qty: 14 0RF cephalexin 500 mg capsule 500 mg PO QID Qty: 28 0RF meloxicam 15 mg tablet 15 mg PO DAILY Qty: 7 0RF methocarbamol 750 mg tablet 750 mg PO Q8H PRN (Reason: pain, moderate) Qty: 10 0RF Referrals: [facility] Orthopedic Surgeons [Provider Group] Referral Note: Call to establish and follow up with the orthopedic team. Rachael Salinas PA-C [Primary Care Provider, Internal Medicine] Stand Alone Forms: Work/School Release Print Language: Marshallese
[2025-02-10 13:40] VITALS: BP 155/102; PULSE 79; RESP 18; TEMP 36.7; O2SAT 97; BMI 26.2
--- OUTSIDE RECORDS SUMMARY | 2025-02-10 17:35 | XMS_ITS ---
Author Name [facility] Organization Unknown Care Team Organization Name Specialty Phone Email Start Date End Da te [facility] PHILLIP HAYDEN Primary Care [email or web address] 11/25/2022 4 [facility] Apolonia Villasenor Primary Care 08/27/2022 4
--- OUTSIDE RECORDS SUMMARY | 2025-02-10 17:35 | XMS_ITS | Clinical Summary ---
Author Organization [facility] [address] [place] [address] [place] [phone] Phone Care Team Providers Care Avionics Electrical Engineer Name Role Phone Hilaria Garsia MD Primary [...] gallbladder with out cholecystitis without obstruction 11/10/2017 Immunizations Immunization Administration Dates Next Due DTP 11/16/1994, 2,01/02/1991,1990,1990 [id number] (Pentacel) 2mo to less than 5yo 09/03/1991,01/02/1991,1990,1990 [...] Surgery Date Site/Laterality Comments SECTION 2010 PROCEDURE: [place] DELIVERY ONLY; COMMENT: distress OTHER SURGICAL HISTORY 02/02/2018 PROCEDURE: ESOPHAGUS ENDOSCOPY/INSERT TUBE; COMMENT: normal OTHER SURGICAL HISTORY 02/24/2018 PROCEDURE: RADIOLOGIC EXAM ESOPHAGUS SINGLE CONTRAST STUDY; COMMENT: gerd, for dysphagia CHOLECYSTECTOMY 11/2018 PROCEDURE: MI CHOLECYSTECTOMY Medical History Medical History Date Comments [...] Care Team (Late st Contact Info) Description 07/05/2025 8:00 AM EDT Office Visit Adult Medicine [address] [phone] Hilaria Garsia MD [address] [place] [address] Health Maintenance Due Date Last Done Comments Pneumococcal Vaccine: Pediatrics (0 to 5 Years) and At-Risk Patients (6 to 49 Years) (1 of 2 - PCV) 2009 HPV Vaccines (1 - 3-dose SCDM series) 2017 Social Influencers of Health Screening 02/21/2022 Depression Screening 03/21/2024 COVID-19 Vaccine ( season) 2024 02/11/2021, 01/21/2021 Influenza Vaccine (#1) 2024 12/30/2017 Cervical Cancer Screening: HPV 10/15/2025 10/15/2020 Cholesterol Screening (Lipid Panel) 07/09/2027 07/08/2022 DTaP,Tdap,and Td Vaccines (9 - Td or Tdap) 01/17/2030 01/18/2020, 07/14/2015, 10/24/2002, Additional history exists RSV Immunization Adult Patients (1 - 1-dose 75+ series) 2065 HIB Vaccines Completed 09/03/1991, 12/19, 1990, Additional [...] Completed 09/08/2022 Hepatitis C Screening Completed 09/08/2022 Meningococcal B Vaccine Aged Out No l [...] Health Maintenance Results * HIV Screening (09/08/2022) [facility] HIV Screening abstracted Result [facility] Provider HEALTH MAINTENANCE Final Result * Hepatitis C Screening (09/08/2022) [facility] Hepatitis C Screening abstracted [facility] Provider HEALTH MAINTENANCE Final Result * Lipid panel (07/08/2022) [facility] LDL/HDL Ratio 4 0 - 4 Triglycerides 112 0 - 150 mg/dL Cholesterol 145 0 - 200 mg/dL HDL 40 >=40 mg/dL LDL Cholesterol 83 0 - 100 mg/dL Blood Venous blood specimen / Unknown Result [facility] Provider LAB BLOOD ORDERABLES Alysha l Result * Cervical Cancer Screening: HPV (10/15/2020) [facility] Cervical Cancer Screening: HPV negative,a bstracted [facility] Provider HEALTH MAINTENANCE Final Result from Last 3 Months or Most Recently Relevant to Health Maintenance Insurance * Guarantor: Meg Rizzo Account Type Relation to Patient Date of Phone Billing Address Personal/Family Self [address] [place] [address] [facility] [address] [place] [address] Care Teams Avionics Electrical Engineer Relationship Specialty Start Date End Date Hilaria Garsia MD [address] [place], [place] PCP - General Internal Medicine 10/05/21
--- OUTSIDE RECORDS SUMMARY | 2025-02-10 17:35 | XMS_ITS | Clinical Summary ---
Author Organization [facility] Address [address] [phone] Phone Care Team Providers Care Color Artist Name Role Phone Apolonia Villasenor Primary Care Provider + Allergies Active Allergy Reactions Criticality Noted Date Comments Adhesive 01/28/2022 Latex 01/28/2022 Sulfa (Sulfonamide Antibiotics) 01/19 Social History Tobacco Use Types Packs/Day Years Used Date Smoking Tobacco: Every Day Cigarettes Tobacco Cessation:Ready to Q uit: Not Asked; Counseling Given: Not Answered Alcohol Use Standard Drinks/Week Comments Not Currently 0 (1 standard drink = 0.6 oz pur e alcohol) Education Answer Date Recorded Are you interested in more education? Not on harriett e 07/17/2022 Are you concerned about learning? Not on file 07/17/2022 No 07/17/2022 No 07/17/2022 Digital Access Answer Date Recorded No 08/17/2022 No 08/17/2022 Reliable internet access at home? Not on file 08/17/2022 Device with a working camera? Not on file Comments Unknown Sex and Gender Information Value Date Recorded Sex Assigned at Female 01/28/2022 9:13 AM EST Legal Sex Female 8:31 AM EST Gender Identity Female 01/28/2022 9:13 AM EST Sexual Orientation Straight 09/09/2022 10 :15 AM EDT Last Filed Vital Signs Vital Sign Reading Time Taken Comments Blood Pressure 144/99 01/28/2022 9:11 AM EST Pulse 76 01/28/2022 9:11 AM EST Temperature 36.9 C (98.4 F) 01/28/2022 9:11 AM EST Respiratory Rate 18 01/28/2022 9:11 AM EST Oxygen Saturation 97% 01/28/2022 9:11 AM EST Inhaled Oxygen Concentration - - Weight 64.4 kg (142 lb) 01/28/2022 9:11 AM EST Height 160 cm (5' 3 ) 01/28/2022 9:11 AM EST Body Mass Index 25.15 01/28/2022 9:11 AM EST Plan of Treatment Health Maintenance Due Date Last Done Comments Adult Td,Tdap Booster 1990 DEPRESSION SCREENING 2002 SMOKING Hx and SMOKELESS TOB ACCO SCREENING 06/12/2003 HEPATITIS C SCREENING 2008 HIV ONE-TIME SCREENING (18-6 5 YEARS) 2008 PNEUMOCOCCAL VACCINES (0-49 years) (1 of 2 - PCV) 2009 PAP SMEAR 06/12/2011 INFLUENZA VACCINE (#1) 2024 COVID-19 VACCINE (1 - 2024-2 6 season) 2024 HEPATITIS A VACCINES Aged Out No long er eligible based on patient's age to complete this topic HIB VACCINES Aged Out No longer eligi ble based on patient's age to complete this topic MENINGOCOCCAL VACCINES (ACWY) Aged Out No longer eligible based on patient's age to complete this topic MENINGOCOCCAL VACCINES (B) Aged Out N o longer eligible based on patient's age to complete this topic Medical Devices Not on file Insurance * Guarantor: Meg Rizzo Account Type Relation to Patient Date of Phone Billing Address Personal/Family Self [address] [place] [address] [facility] ACO [address] HMO * Guarantor: Meg Rizzo Account Type Relation to Patient Date of Phone Billing Address Personal/Family Self [address] [place] [address] [facility] [employer] A[employer] HMO * Guarantor: Meg Rizzo Account Type Relation to Patient Date of Phone Billing Address Personal/Family Self [address] [place] [address] [facility] [employer] HMO * Guarantor: Meg Rizzo Account Type Relation to Patient Date of Phone Billing Address Personal/Family Self [address] [place] [address] [facility] [employer] HMO * Guarantor: Meg Rizzo Account Type Relation to Patient Date of Phone Billing Address Personal/Family Self [address] [place] [address] [facility] [employer] ACO [address] HMO * Guarantor: Meg Rizzo Account Type Relation to Patient Date of Phone Billing Address Personal/Family Self [address] [place] [address] [facility] Care Teams Color Artist Relationship Specialty Start Date End Date Apolonia Villasenor PA [address] [facility] [address] [place] [address] PCP - General 09/09/22 Additional Source Comments The information contained in this document represents components of the legal health record. It is not the complete legal health record.[facility]
[2025-02-10 17:40] VITALS: BP 155/102; PULSE 79; RESP 18; TEMP 36.7; O2SAT 97
== END 2025-02-10 17:40 | disposition home or self-care (01) ==
PROVIDERS: Emergency Provider Emergency Medicine Emergency Medical Services; PCP Physician Assistant
DX: S63.501A Unspecified sprain of right wrist, initial encounter (principal); M25.531 Pain in right wrist; M79.641 Pain in right hand; Y29.XXXA Contact with blunt object, undetermined intent, initial encounter; Y93.9 Activity, unspecified; Y92.9 Unspecified place or not applicable; Y99.8 Other external cause status
CPT/HCPCS: 29130; 73110; 73130; 73200; 99283; 99284

== ENCOUNTER → 2025-02-10 13:39 | Outpatient (BNV) | payer OTHER, MEDICAID, SELFPAY | PROVIDERS: PCP Physician Assistant; Visit Provider Radiology Diagnostic Radiology | DX: M25.531 Pain in right wrist (principal); S69.91XA Unspecified injury of right wrist, hand and finger(s), initial encounter | CPT/HCPCS: 73110; 73130; 73200 ==